=== PATIENT | female | born 1975 | race Caucasian/White ===

== ENCOUNTER → 2016-09-22 | Outpatient (CLI) | payer OTHER ==
--- NOTE | 2016-09-22 12:42 | US ---
EXAMINATION TYPE: US pelvic complete DATE OF EXAM: 09/22/2016 12:07 PM COMPARISON: NONE CLINICAL HISTORY: pelvic pain. Pt states known fibroid uterus with pelvic pain and pressure TECHNIQUE: Transvaginal (TV) and Transabdominal (TA) Date of LMP: dub, unknown EXAM MEASUREMENTS: Uterus: 9.6 x 5.4 x 6.4 cm Endometrial Stripe: 0.7 cm Right Ovary: 3.5 x 1.9 x 2.1 cm Left Ovary: 3.1 x 1.8 x 2.7 cm Exam done transvaginally to better visualize the uterus and ovaries. 1. Uterus: Anteverted bulky with 3 fibroids, posterior uterine body 4.2 x 4.1 x 4.4cm, rt lateral 2.7 x 1.4 x 2.1cm and rt fundal 1.2 x 1.6 x 1.2cm 2. Endometrium: wnl 3. Right Ovary: wnl 4. Left Ovary: wnl 5. Bilateral Adnexa: wnl 6. Posterior cul-de-sac: minimal amount of free fluid IMPRESSION: 1. Uterus appears bulky with multiple hypoechoic nodules the largest measuring 4.4 cm suggestive of f ibroids.
--- NOTE | 2016-09-22 21:17 | WWHP ---
DATE OF SERVICE: 09/22/2016 CHIEF COMPLAINT: The patient is here for her routine gynecologic exam. HPI: This is a 40-year-old G0 with an LMP of 08/30/2016. She is currently not sexually active. She states it is about 2-1/2 years since her last pelvic exam. [place] She states her periods have gotten more irregular and are now every 3 to 5 weeks. She has noticed this type of change for about 2 years. They have also got heavier and more painful. They are typically lasting 6 days with heavier flow throughout. She previously had to change her protection about every 3 to 4 hours but now changes it every 1 to 2 hours. More crampy and more painful. She states the pain changes during the last 1 to 2 days of her period where it feels like a deeper type of discomfort. She was told she has uterine fibroids about 2-1/2 years ago and this was determined by ultrasound. She is also complaining of lots of pelvic pressure and abdominal bloating. She also experienced urinary urgency. She had a urinalysis done at an urgent care clinic 3 weeks ago, which was apparently negative. PAST MEDICAL HISTORY: Hidradenitis suppurativa in the groin and axillary areas. 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 She currently does not have a primary care physician. MEDICATIONS: 1. Doxycycline 100 mg b.i.d. 2. Clobetasol gel p.r.n. ALLERGIES TO SULFA. PAST SURGICAL HISTORY: Sinus surgery at age 12, tonsillectomy with adenoidectomy as a child. She has had bilateral breast biopsies. Most recent was in approximately 2013 and this revealed a right fibroadenoma according to the patient. 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 She has no history of STDs. She was told she had uterine fibroids. SOCIAL HISTORY: She denies tobacco and drug use and has about one glass of wine daily. She has been since approximately 2005. She is not seeing anybody at this time. It has been more than a year, since she has been sexually active. 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 FAMILY HISTORY: Aunt had ovarian cancer. Mother had diverticulitis. Grandmother had Parkinson disease. REVIEW OF SYSTEMS: She believes she has gained about 20 pounds over the last 6 months. This was after losing about 30 pounds last summer with diet and exercise. She denies respiratory, cardiac, or GI problems. PHYSICAL EXAM: Blood pressure 110/72. Height 5 feet 3 inches. Weight 226 pounds. Temperature 98.0, pulse 99. This a well-developed, heavyset white female who is alert and oriented x3 in no acute distress. HEENT is within normal limits. NECK: Supple without mass or thyromegaly. CHEST AND LUNGS: Clear to auscultation. HEART: Regular rate and rhythm. Breast reveals a right breast mass at the 7 to 8:00 position measuring approximately 2.5 x 2.5 cm. It is firm and smooth and slightly mobile. This is nontender. She states this is where she had a breast biopsy diagnosing fibroadenoma 2-1/2 years ago. There are no other palpable breast masses. Axillary exam is negative for adenopathy. BACK: Negative for CVA tenderness. ABDOMEN: Mildly obese, soft, nontender, without palpable masses. PELVIC EXAM: External genitalia there is an area consistent with hidradenitis in the left mons pubis area as well as one in the buttock region. The one in the buttock region is slightly inflamed and has a slightly wet appearance. Rest of the external genitalia is unremarkable. Cervix and vagina is normal. No unusual discharge. No evidence of prolapse. There is no cervical motion tenderness. The uterus is approximately 6 to 8 week size and is midposition and nontender. There are no palpable adnexal masses or tenderness. Rectovaginal exam negative for mass or tenderness. EXTREMITIES: Nontender. IMPRESSION: 1. A 40-year-old female with menometrorrhagia. 2. Dysmenorrhea. 3. Abdominal bloating. 4. Urinary urgency. 5. History of uterine fibroids. 6. Right breast mass, which was apparently previously biopsied consistent with fibroadenoma. PLAN: 1. Pap smear was performed. 2. Self-breast examination was discussed. 3. Diagnostic mammogram will be ordered. We will see if this can be done today. 4. Pelvic ultrasound will be scheduled. 5. UA and C&S have been obtained. 6. Consider surgical referral for removal of the breast mass. 7. Trial of meclofenamate sodium 100 mg t.i.d. p.r.n. for heavy menstrual flow up to 6 days per cycle. 8. She will also return in one year and p.r.n. Total time spent with the patient 50 minutes.
--- NOTE | 2016-10-01 12:01 | MM ---
Reason for exam: clinical finding. History: Patient is nulliparous. Benign excisional biopsy of the right breast, 2013. Indicated problem(s): palpable abnormality in the right breast. Physical Findings: Nurse Summary: 2.5 x 2.5cm nodule in the right breast at 7-8 o'clock (Dr. Cooper). MG 3D Diag Mammo W/Cad MANDO Bilateral CC and MLO view(s) were taken. No prior studies available for comparison. Finding: There is a 25 mm high density, circumscribed round mass located 6 cm from the nipple in the upper outer quadrant, middle position. There is a 27mm round, circumscribed density in the right breast upper outer quadrant, 8cm from the nipple, solid on ultrasound. ASSESSMENT: Incomplete: need additional imaging evaluation, BI-RAD 0 RECOMMENDATION: Ultrasound of the left breast.
--- NOTE | 2016-10-14 13:05 | USB ---
Reason for exam: clinical finding. History: Patient is nulliparous. Benign excisional biopsy of the right breast, 2013. Indicated problem(s): palpable abnormality in the right breast. US Breast RT Right breast ultrasound includes all four quadrants, the retroareolar region and axilla. Finding demonstrates a 8 x 5 x 8mm oval, mixed lesion at 1 o'clock, a 36 x 26 x 27mm solid, hypoechoic lesion at 8 o'clock for which a biopsy of the largest lesion is recommended and a 10 x 7 x 11mm solid, hypoechoic lesion at 10 o'clock. These results were verbally communicated with the patient and result sheet given to the patient on 10/14/16. ASSESSMENT: Suspicious, BI-RAD 4 RECOMMENDATION: Ultrasound core biopsy of both breasts. Called Dr. Cooper with mammographic findings and has scheduled an appointment for the patient for 11/30/16 at 10:[address] Howard. Biopsy scheduled for 11/08/16 at 12:20. PRELIMINARY REPORT CALLED AND FAXED TO DR. HOWARD ON 10/14/16 AT 300/TP.
== END | disposition home or self-care (01) ==
LOC: WWCWWP 09:56
PROVIDERS: ATTEND Obstetrics & Gynecology
DX: N63 Unspecified lump in breast (principal); R10.2 Pelvic and perineal pain; N94.6 Dysmenorrhea, unspecified; N92.1 Excessive and frequent menstruation with irregular cycle; R14.0 Abdominal distension (gaseous); R39.15 Urgency of urination; N85.2 Hypertrophy of uterus
CPT/HCPCS: 76830; 76641; G0204; G0279

== ENCOUNTER → 2016-10-14 | Outpatient (CLI) | payer OTHER ==
--- NOTE | 2016-10-14 13:08 | USB ---
Reason for exam: additional evaluation requested from abnormal screening. History: Patient is nulliparous. Benign excisional biopsy of the right breast, 2013. US Breast Workup Limited LT Left breast ultrasound demonstrates several oval, solid, hypoechoic lesion measuring 28 x 17 x 28mm at 2 o'clock, 11 x 7 x 10mm at 3 o'clock, 9 x 4 x 10mm at 12 o'clock and 10 x 6 x 8mm at 12 o'clock. Biopsy largest lesion. These results were verbally communicated with the patient and result sheet given to the patient on 10/14/16. ASSESSMENT: Suspicious, BI-RAD 4 RECOMMENDATION: Ultrasound core biopsy of the left breast. Called Dr. Cooper with mammographic findings and has scheduled an appointment for the patient for 11/30/16 at 10:[address] Howard. Biopsy scheduled for 11/08/16 at 12:20. PRELIMINARY REPORT CALLED AND FAXED TO DR. HOWARD ON 10/14/16 AT 300/TP.
== END | disposition home or self-care (01) ==
LOC: RADUSWWP 10:16
PROVIDERS: ATTEND Obstetrics & Gynecology
DX: R92.8 Other abnormal and inconclusive findings on diagnostic imaging of breast (principal)

== ENCOUNTER → 2016-11-08 | Day surgery (SDC) | payer OTHER ==
[2016-11-08 12:11] VITALS: RESP 16; BMI 39.8
--- NOTE | 2016-11-08 14:11 | USB ---
EXAMINATION TYPE: US biopsy breast VAD LT DATE OF EXAM: 11/08/2016 CLINICAL HISTORY: R92.8 Abn mammogram. TECHNIQUE: Ultrasound guided core biopsy of left breast. COMPARISON: NONE FINDINGS: The procedure of ultrasound guided core biopsy was explained to the patient. Benefits, alternatives, and risks were discussed. An informed consent was then obtained. The patient was placed in supine positioning for imaging and for the procedure. The overlying skin was prepped and draped in usual sterile fashion. Lidocaine buffered with bicarbonate was used as anesthetic into the skin and subcutaneous tissue up to area of concern in the left breast. A astrid was made with surgical scalpel. Under ultrasound guidance, a 12-gauge vacuum assisted biopsy gun device was used to obtain 5 core samples. Following this, a biopsy clip was left in lesion. Postprocedural mammogram demonstrates appropriate deployment of clip marker. The patient tolerated the procedure well without any immediate complication. The patient was kept in the radiology department for short stay after the procedure and then discharged home in stable condition. IMPRESSION: Successful, uncomplicated ultrasound guided core biopsy of area of concern in the left breast, full pathology results to follow. Pathology Results: Benign A. BREAST, RIGHT, CORE BIOPSY: FIBROADENOMA. B. BREAST, LEFT, CORE BIOPSY: FIBROADENOMA. FIBROCYSTIC CHANGES INCLUDING CYST AND FIBROSIS. Recommendation Follow up ultrasound of both breasts in 6 months. CAROLD
--- NOTE | 2016-11-08 14:14 | USB ---
EXAMINATION TYPE: US biopsy breast VAD RT, MG diagnostic mammo BI wo CAD DATE OF EXAM: 11/08/2016 CLINICAL HISTORY: R92.8 Abn mammogram. TECHNIQUE: Ultrasound guided core biopsy of right breast. COMPARISON: NONE FINDINGS: The procedure of ultrasound guided core biopsy was explained to the patient. Benefits, alternatives, and risks were discussed. An informed consent was then obtained. The patient was placed in supine positioning for imaging and for the procedure. The overlying skin was prepped and draped in usual sterile fashion. Lidocaine buffered with bicarbonate was used as anesthetic into the skin and subcutaneous tissue up to area of concern in the right breast. A astrid was made with surgical scalpel. Under ultrasound guidance, a 12-gauge vacuum assisted biopsy gun device was used to obtain 5 core samples. Following this, a biopsy clip was left in lesion. Postprocedural mammogram demonstrates appropriate deployment of clip marker. The patient tolerated the procedure well without any immediate complication. The patient was kept in the radiology department for short stay after the procedure and then discharged home in stable condition. IMPRESSION: Successful, uncomplicated ultrasound guided core biopsy of area of concern in the right breast, full pathology results to follow. Pathology Results: Benign A. BREAST, RIGHT, CORE BIOPSY: FIBROADENOMA. B. BREAST, LEFT, CORE BIOPSY: FIBROADENOMA. FIBROCYSTIC CHANGES INCLUDING CYST AND FIBROSIS. Recommendation Follow up ultrasound of both breasts in 6 months. ANA
[2016-11-08 14:15] VITALS: BP 139/78; PULSE 90; TEMP 97.9
== END ==
LOC: RADUSWWP 11:45
PROVIDERS: ATTEND Surgery
DX: D24.1 Benign neoplasm of right breast (principal); D24.2 Benign neoplasm of left breast; N64.89 Other specified disorders of breast; R92.8 Other abnormal and inconclusive findings on diagnostic imaging of breast
CPT/HCPCS: 88305; 19083; 19084; G0204; A4648; J2001

== ENCOUNTER → 2016-12-22 | Outpatient (CLI) | payer OTHER ==
--- NOTE | 2016-12-22 11:12 | P.PN ---
Progress Note - Text Chief complaint: painful, heavy periods not improved with medication. HPI: This is a 41-year-old G0 with an LMP of 08/20/2016. The patient was seen on 09/22/2016. At that time she was complaining of heavier and more painful periods. Periods have been about every 3 to 5 weeks. The change in her periods have been over the last 2 1/2 years she states her peers are now affecting her work. She has to travel quite a bit for her work, but has been not able to work on the very painful and heavy days of her period. She tried taking meclofenafate sodium for 2 menstrual periods with no improvement whatsoever. She's also been having flareups of her hidradenitis supperativa just before each period. She also notices more ankle swelling during each period. She is interested in more definitive treatment for her menstrual leave related problems. She states she has no interest in childbearing and she is interested in having a hysterectomy for her problems. Physical exam: blood pressure 127/76, height 5'3", weight 231 pounds, tempter 98.6, pulse 89. This is a well-developed obese white female who is alert and oriented times 3 in no acute distress. She does get slightly tearful when she is describing her problems. Additional tests: pelvic ultrasound was performed on 09/22/2016 which showed multi-fibroid uterus with the largest fibroid measure progress by 4.4 cm. The ovaries were within normal limits. Mammogram done in 2016 was suspicious on both sides which led to a bilateral core biopsies on 11/08/2016 which revealed fibrocystic changes in fibroadenoma Impression: 1. 41-year-old female with a symptomatic multi-fibroid uterus with hypermenorrhia and severe dysmenorrhea. 2. No significant improvement with meclofenamate sodium treatment. Plan: 1. We have had a long discussion regarding her symptoms and findings by ultrasound. We have discussed various options including medical treatment with oral contraceptives, endometrial ablation and more definitive surgery such as hysterectomy as well as pros and cons of each option. We've also discussed myomectomy without hysterectomy. I do not feel endometrial ablation and myomectomy are ideal for her situation. We've also discussed how hysterectomy would not allow her to bear children. She understands this. 2. We have had a long discussion regarding various types of hysterectomies and approaches. She is interested in less invasive approaches so she can get back to normal activities and to her regular work schedule sooner. 3. We have discussed options that can be considered at the time of hysterectomy including oophorectomy. We have discussed pros and cons of bilateral oophorectomy at the time of hysterectomy. She understands that removing the ovaries would lead to instant menopause and there can be many symptoms associated with menopause. She understands that leaving ovaries in would possibly cause her to continue to have cyclic symptoms such as cyclic ankle swelling and cyclic worsening of Hidradenitis Suppurativa, as she has had in the past. 4. She will be referred to one of the local gynecologists for possible laparoscopic hysterectomy. 5. She was advised to discontinue meclofenamate sodium since it was not helpful. Total time spent with the patient: 35 minutes
== END | disposition home or self-care (01) ==
LOC: WWCWWP 09:49
PROVIDERS: ATTEND Obstetrics & Gynecology
DX: Z01.419 Encounter for gynecological examination (general) (routine) without abnormal findings (principal)

== ENCOUNTER 2017-06-03 18:37 | Emergency (ER) | payer MEDICAID, OTHER ==
[2017-06-03] MEDS ORDERED: SODIUM CHLORIDE 0.9% 1,000 ML IV STA (19:31)
[2017-06-03 19:56] LABS: Basophils # (A) 0.1 k/uL (0-0.2); Basophils % (A) 1 %; Eosinophils # (A) 0.3 k/uL (0-0.7); Eosinophils % (A) 2 %; HCT 41.2 % (34.0-46.0); HGB 13.3 gm/dL (11.4-16.0); Lymphocytes # (A) 3.8 k/uL (1.0-4.8); Lymphocytes % (A) 27 %; MCH 27.6 pg (25.0-35.0); MCHC 32.2 g/dL (31.0-37.0); MCV 85.8 fL (80.0-100.0); Mean Platelet Volume 7.5; Monocytes # (A) 0.7 k/uL (0-1.0); Monocytes % (A) 5 %; Neutrophils # (A) 8.8 k/uL (1.3-7.7); Neutrophils % (A) 63 %; Platelet Count 309 k/uL (150-450); RDW 14.4 % (11.5-15.5)
[2017-06-03 19:58] LABS: Appearance,Urine Clear (Clear); Bacteria,Urine Few /hpf; Bilirubin,Urine Negative (Negative); Blood,Urine Negative (Negative); Color,Urine Light Yellow; Glucose,Urine (UA) Negative (Negative); Ketones,Urine Negative (Negative); Leukocyte Esterase,Urine Small (Negative); Nitrite,Urine Negative (Negative); Protein,Urine Negative (Negative); RBC,Urine 6 /hpf (0-5); Specific Gravity,Urine 1.013 (1.001-1.035); Squamous Epithelial Cell,Urine 2 /hpf (0-4); Urobilinogen,Urine <2.0 mg/dL (<2.0); WBC,Urine 4 /hpf (0-5)
[2017-06-03 20:08] LABS: ALT 32 U/L (9-52); AST 16 U/L (14-36); Albumin 4.7 g/dL (3.5-5.0); Alkaline Phosphatase 58 U/L (38-126); Amylase 53 U/L (30-110); Anion Gap 15 mmol/L; Blood Urea Nitrogen 12 mg/dL (7-17); Calcium 9.9 mg/dL (8.4-10.2); Carbon Dioxide 24 mmol/L (22-30); Chloride 104 mmol/L (98-107); Glucose 88 mg/dL (74-99); Lipase 60 U/L (23-300); Potassium 4.1 mmol/L (3.5-5.1); Sodium 143 mmol/L (137-145); Total Bilirubin 0.2 mg/dL (0.2-1.3); Total Protein 8.1 g/dL (6.3-8.2)
[2017-06-03 20:09] LABS: Partial Thromboplastin Time 25.1 sec (22.0-30.0); Prothrombin Time 10.1 sec (9.0-12.0)
--- NOTE | 2017-06-03 20:47 | US ---
EXAMINATION TYPE: US gallbladder DATE OF EXAM: 06/03/2017 COMPARISON: NONE CLINICAL HISTORY: Pain. pressure sensation under right ribcage, no nausea, no pain, former alcoholic EXAM MEASUREMENTS: Liver Length: 18.8 cm Gallbladder Wall: 0.2 cm CBD: 0.4 cm Right Kidney: 10.3 x 4.3 x 4.6 cm Pancreas: wnl Liver: upper limits of normal for size Gallbladder: internal echoes may represent sludge with no obvious stones seen, slightly contracted a ppearance for being 8 hours NPO Evidence for sonographic Pabon's sign: no CBD: wnl Right Kidney: wnl IMPRESSION: There is some echogenic bile. No gallstones seen. No dilated ducts.
--- NOTE | 2017-06-03 21:09 | ED ---
Abdominal Pain HPI - General Chief Complaint: Abdominal Pain Stated Complaint: pressure, right side Time Seen by Provider: 06/03/17 19:08 Source: patient, RN notes reviewed, old records reviewed Mode of arrival: ambulatory Limitations: no limitations - History of Present Illness Initial Comments: This patient is a 41-year-old female presents emergency Department chief complaint of one week of increased pain over the right upper quadrant. Patient reports that she feels like she has a pressure and distention over this area. is concerned could be related to her gallbladder. She reports she's had no nausea or vomiting. She denies any significant pain when she is resting but she does have some tenderness to palpation over her right ribs. Patient states that she has had normal bowel movements. She does have a history of severe alcoholism. She reports that she's been sober for the past 4 months. Patient states that she is concerned about her liver enzymes as well. She is supposed to go on a trip tomorrow evening. She initially went to [facility] here for further evaluation with lab work and further testing.Patient denies any recent fever, chills, shortness of breath, nausea vomiting, numbness or tingling, dysuria or hematuria, constipation or diarrhea, headaches or visual changes, or any other current symptoms - Related Data Home Medications Medication Instructions Recorded Confirmed Clindamycin HCl 300 mg PO BID 06/03/17 06/03/17 Rifampin [Rifadin] 300 mg PO BID 06/03/17 06/03/17 Allergies Allergy/AdvReac Type Severity Reaction Status Date / Time Sulfa (Sulfonamide Allergy Anaphylaxis Verified 06/03/17 19:41 Antibiotics) Review of Systems ROS Statement: Those systems with pertinent positive or pertinent negative responses have been documented in the HPI. ROS Other: All systems not noted in ROS Statement are negative. Past Medical History Past Medical History: Mitral Valve Prolapse (MVP) Additional Past Medical History / Comment(s): HYDROTINITIS SUPERATIVA History of Any Multi-Drug Resistant Organisms: None Reported Past Surgical History: Adenoidectomy, Tonsillectomy Additional Past Surgical History / Comment(s): SINUS SX SECONDARY INFECTION @ 12 Y/O. RIGHT AXILLA EXCISIONAL (BENIGN)-2005. LEFT BREAST EXCISIONAL (BENIGN)- 2005. Past Anesthesia/Blood Transfusion Reactions: Postoperative Nausea & Vomiting ( PONV) Past Psychological History: No Psychological Hx Reported Smoking Status: Never smoker Past Alcohol Use History: None Reported Past Drug Use History: None Reported General Exam - General Exam Comments Initial Comments: This is a 41-year-old female. No acute distress. Limitations: no limitations General appearance: alert, in no apparent distress Head exam: Present: atraumatic, normocephalic, normal inspection Eye exam: Present: normal appearance, PERRL, EOMI. Absent: scleral icterus, conjunctival injection, periorbital swelling ENT exam: Present: normal exam, mucous membranes moist Neck exam: Present: normal inspection. Absent: tenderness, meningismus, lymphadenopathy Respiratory exam: Present: normal lung sounds bilaterally. Absent: respiratory distress, wheezes, rales, rhonchi, stridor Cardiovascular Exam: Present: regular rate, normal rhythm, normal heart sounds. Absent: systolic murmur, diastolic murmur, rubs, gallop, clicks GI/Abdominal exam: Present: soft, normal bowel sounds. Absent: distended, tenderness, guarding, rebound, rigid Extremities exam: Present: normal inspection, full ROM, normal capillary refill. Absent: tenderness, pedal edema, joint swelling, calf tenderness Back exam: Present: normal inspection Neurological exam: Present: alert, oriented X3, CN II-XII intact Psychiatric exam: Present: normal affect, normal mood Skin exam: Present: warm, dry, intact, normal color. Absent: rash Course Vital Signs 06/03/17 19:01 Pulse Rate 89 Respiratory 20 Rate Blood Pressure 145/90 O2 Sat by Pulse 100 Oximetry Medical Decision Making - Medical Decision Making This patient is a 41-year-old female presents emergency department today she complaint of right upper quadrant pain for the past 4 days. She's had no other symptoms according fever or chills or nausea or vomiting. She has a history of alcoholism. Patient has a mildly elevated white blood cell count at this time. Liver enzymes are all within normal limits. Kidney function was all within normal limits. Amylase and lipase are unremarkable. Patient did not want any pain medication and IV fluids. She states that she is not in any significant pain when she palpates over the ribs. Gallbladder ULTRASOUND was obtained. Evidence of gallbladder sludge but no evidence of acute cholecystitis. At this time I advised the patient that she needs follow-up with a surgeon possible HIDA scan of the future. Discussed return to emergency department if any alarming signs or symptoms occur. Patient agrees to treatment plan will comply. Return parameters were discussed. - Lab Data Result diagrams: 06/03/17 19:45 06/03/17 19:45 Lab Results 06/03/17 06/03/17 06/03/17 Range/Units 19:45 19:45 19:45 WBC 14.0 H (3.8-10.6) k/uL RBC 4.80 (3.80-5.40) m/uL Hgb 13.3 (11.4-16.0) gm/dL Hct 41.2 (34.0-46.0) % MCV 85.8 (80.0-100.0) fL MCH 27.6 (25.0-35.0) pg MCHC 32.2 (31.0-37.0) g/dL RDW 14.4 (11.5-15.5) % Plt Count 309 (150-450) k/uL Neutrophils % 63 % Lymphocytes % 27 % Monocytes % 5 % Eosinophils % 2 % Basophils % 1 % Neutrophils # 8.8 H (1.3-7.7) k/uL Lymphocytes # 3.8 (1.0-4.8) k/uL Monocytes # 0.7 (0-1.0) k/uL Eosinophils # 0.3 (0-0.7) k/uL Basophils # 0.1 (0-0.2) k/uL PT 10.1 (9.0-12.0) sec INR 1.0 (<1.2) APTT 25.1 (22.0-30.0) sec Sodium 143 (137-145) mmol/L Potassium 4.1 (3.5-5.1) mmol/L Chloride 104 (98-107) mmol/L Carbon Dioxide 24 (22-30) mmol/L Anion Gap 15 mmol/L BUN 12 (7-17) mg/dL Creatinine 0.70 (0.52-1.04) mg/dL Est GFR (MDRD) Af Amer >60 (>60 ml/min/1.73 sqM) Est GFR (MDRD) Non-Af >60 (>60 ml/min/1.73 sqM) Glucose 88 (74-99) mg/dL Calcium 9.9 (8.4-10.2) mg/dL Total Bilirubin 0.2 (0.2-1.3) mg/dL AST 16 (14-36) U/L ALT 32 (9-52) U/L Alkaline Phosphatase 58 (38-126) U/L Total Protein 8.1 (6.3-8.2) g/dL Albumin 4.7 (3.5-5.0) g/dL Amylase 53 (30-110) U/L Lipase 60 (23-300) U/L Urine Color Urine Appearance (Clear) Urine pH (5.0-8.0) Ur Specific [place] (1.001-1.035) Urine Protein (Negative) Urine Glucose (UA) (Negative) Urine Ketones (Negative) Urine Blood (Negative) Urine Nitrite (Negative) Urine Bilirubin (Negative) Urine Urobilinogen (<2.0) mg/dL Ur Leukocyte Esterase (Negative) Urine RBC (0-5) /hpf Urine WBC (0-5) /hpf Ur Squamous Epith Cells (0-4) /hpf Urine Bacteria (None) /hpf 06/03/17 Range/Units 19:45 WBC (3.8-10.6) k/uL RBC (3.80-5.40) m/uL Hgb (11.4-16.0) gm/dL Hct (34.0-46.0) % MCV (80.0-100.0) fL MCH (25.0-35.0) pg MCHC (31.0-37.0) g/dL RDW (11.5-15.5) % Plt Count (150-450) k/uL Neutrophils % % Lymphocytes % % Monocytes % % Eosinophils % % Basophils % % Neutrophils # (1.3-7.7) k/uL Lymphocytes # (1.0-4.8) k/uL Monocytes # (0-1.0) k/uL Eosinophils # (0-0.7) k/uL Basophils # (0-0.2) k/uL PT (9.0-12.0) sec INR (<1.2) APTT (22.0-30.0) sec Sodium (137-145) mmol/L Potassium (3.5-5.1) mmol/L Chloride (98-107) mmol/L Carbon Dioxide (22-30) mmol/L Anion Gap mmol/L BUN (7-17) mg/dL Creatinine (0.52-1.04) mg/dL Est GFR (MDRD) Af Amer (>60 ml/min/1.73 sqM) Est GFR (MDRD) Non-Af (>60 ml/min/1.73 sqM) Glucose (74-99) mg/dL Calcium (8.4-10.2) mg/dL Total Bilirubin (0.2-1.3) mg/dL AST (14-36) U/L ALT (9-52) U/L Alkaline Phosphatase (38-126) U/L Total Protein (6.3-8.2) g/dL Albumin (3.5-5.0) g/dL Amylase (30-110) U/L Lipase (23-300) U/L Urine Color Light Yellow Urine Appearance Clear (Clear) Urine pH 6.0 (5.0-8.0) Ur Specific [place] 1.013 (1.001-1.035) Urine Protein Negative (Negative) Urine Glucose (UA) Negative (Negative) Urine Ketones Negative (Negative) Urine Blood Negative (Negative) Urine Nitrite Negative (Negative) Urine Bilirubin Negative (Negative) Urine Urobilinogen <2.0 (<2.0) mg/dL Ur Leukocyte Esterase Small H (Negative) Urine RBC 6 H (0-5) /hpf Urine WBC 4 (0-5) /hpf Ur Squamous Epith Cells 2 (0-4) /hpf Urine Bacteria Few H (None) /hpf - Radiology Data Radiology results: report reviewed Ultrasound does show some echogenic bile. No gallstones seen. No dilated ducts. Disposition Clinical Impression: RUQ pain Disposition: HOME SELF-CARE Condition: Good Instructions: Biliary Colic (ED) Additional Instructions: Patient advised to follow-up with the surgical appliance fitter. Return to emergency department if any alarming signs or symptoms occur including vomiting, nausea, fever or other worsening pain. Patient should monitor her diet. Avoid any fatty or greasy foods. Return to emergency department if any alarming signs or symptoms occur. Referrals: None,Stated [Primary Care Provider] - 1-2 days Hailey Dave MD [STAFF PHYSICIAN] - 1-2 days Sherman Feldman DO [Doctor of Osteopathic Medicine] - 1-2 days Time of Disposition: 21:06
--- NOTE | 2017-06-03 21:17 | ED ---
Medical Decision Making - Medical Decision Making This case with Dr. Mireles. He recommended that we do do a computed tomography scan for the patient. I did complete a CT without contrast due to the red blood cells's with in her urine. She does have some stones within her left kidney. Gallbladder was reviewed on the CAT scan shows no significant acute process. She does have a right sided breast adenoma. Patient is aware of this. It is slightly increased from previous. She has no redness or significant tenderness to the breast exam. Pain is mainly in the right upper quadrant. She did refuse IV pain medicine at this time. I discussed the patient will be discharged with biliary colic. Discussed the importance of monitoring her diet. Patient will be discharged short course of pain medicine. Discussed following up. - Lab Data Result diagrams: 06/03/17 19:45 06/03/17 19:45 Lab Results 06/03/17 06/03/17 06/03/17 Range/Units 19:45 19:45 19:45 WBC 14.0 H (3.8-10.6) k/uL RBC 4.80 (3.80-5.40) m/uL Hgb 13.3 (11.4-16.0) gm/dL Hct 41.2 (34.0-46.0) % MCV 85.8 (80.0-100.0) fL MCH 27.6 (25.0-35.0) pg MCHC 32.2 (31.0-37.0) g/dL RDW 14.4 (11.5-15.5) % Plt Count 309 (150-450) k/uL Neutrophils % 63 % Lymphocytes % 27 % Monocytes % 5 % Eosinophils % 2 % Basophils % 1 % Neutrophils # 8.8 H (1.3-7.7) k/uL Lymphocytes # 3.8 (1.0-4.8) k/uL Monocytes # 0.7 (0-1.0) k/uL Eosinophils # 0.3 (0-0.7) k/uL Basophils # 0.1 (0-0.2) k/uL PT 10.1 (9.0-12.0) sec INR 1.0 (<1.2) APTT 25.1 (22.0-30.0) sec Sodium 143 (137-145) mmol/L Potassium 4.1 (3.5-5.1) mmol/L Chloride 104 (98-107) mmol/L Carbon Dioxide 24 (22-30) mmol/L Anion Gap 15 mmol/L BUN 12 (7-17) mg/dL Creatinine 0.70 (0.52-1.04) mg/dL Est GFR (MDRD) Af Amer >60 (>60 ml/min/1.73 sqM) Est GFR (MDRD) Non-Af >60 (>60 ml/min/1.73 sqM) Glucose 88 (74-99) mg/dL Calcium 9.9 (8.4-10.2) mg/dL Total Bilirubin 0.2 (0.2-1.3) mg/dL AST 16 (14-36) U/L ALT 32 (9-52) U/L Alkaline Phosphatase 58 (38-126) U/L Total Protein 8.1 (6.3-8.2) g/dL Albumin 4.7 (3.5-5.0) g/dL Amylase 53 (30-110) U/L Lipase 60 (23-300) U/L Urine Color Urine Appearance (Clear) Urine pH (5.0-8.0) Ur Specific [place] (1.001-1.035) Urine Protein (Negative) Urine Glucose (UA) (Negative) Urine Ketones (Negative) Urine Blood (Negative) Urine Nitrite (Negative) Urine Bilirubin (Negative) Urine Urobilinogen (<2.0) mg/dL Ur Leukocyte Esterase (Negative) Urine RBC (0-5) /hpf Urine WBC (0-5) /hpf Ur Squamous Epith Cells (0-4) /hpf Urine Bacteria (None) /hpf 06/03/17 Range/Units 19:45 WBC (3.8-10.6) k/uL RBC (3.80-5.40) m/uL Hgb (11.4-16.0) gm/dL Hct (34.0-46.0) % MCV (80.0-100.0) fL MCH (25.0-35.0) pg MCHC (31.0-37.0) g/dL RDW (11.5-15.5) % Plt Count (150-450) k/uL Neutrophils % % Lymphocytes % % Monocytes % % Eosinophils % % Basophils % % Neutrophils # (1.3-7.7) k/uL Lymphocytes # (1.0-4.8) k/uL Monocytes # (0-1.0) k/uL Eosinophils # (0-0.7) k/uL Basophils # (0-0.2) k/uL PT (9.0-12.0) sec INR (<1.2) APTT (22.0-30.0) sec Sodium (137-145) mmol/L Potassium (3.5-5.1) mmol/L Chloride (98-107) mmol/L Carbon Dioxide (22-30) mmol/L Anion Gap mmol/L BUN (7-17) mg/dL Creatinine (0.52-1.04) mg/dL Est GFR (MDRD) Af Amer (>60 ml/min/1.73 sqM) Est GFR (MDRD) Non-Af (>60 ml/min/1.73 sqM) Glucose (74-99) mg/dL Calcium (8.4-10.2) mg/dL Total Bilirubin (0.2-1.3) mg/dL AST (14-36) U/L ALT (9-52) U/L Alkaline Phosphatase (38-126) U/L Total Protein (6.3-8.2) g/dL Albumin (3.5-5.0) g/dL Amylase (30-110) U/L Lipase (23-300) U/L Urine Color Light Yellow Urine Appearance Clear (Clear) Urine pH 6.0 (5.0-8.0) Ur Specific [place] 1.013 (1.001-1.035) Urine Protein Negative (Negative) Urine Glucose (UA) Negative (Negative) Urine Ketones Negative (Negative) Urine Blood Negative (Negative) Urine Nitrite Negative (Negative) Urine Bilirubin Negative (Negative) Urine Urobilinogen <2.0 (<2.0) mg/dL Ur Leukocyte Esterase Small H (Negative) Urine RBC 6 H (0-5) /hpf Urine WBC 4 (0-5) /hpf Ur Squamous Epith Cells 2 (0-4) /hpf Urine Bacteria Few H (None) /hpf - Radiology Data Radiology results: report reviewed Nonobstructing left renal calculus. Normal appendix no sign of acute abdomen and pelvis. Large right breast mass follow-up as recommended. Isbe present in all mammogram and appears increased. Disposition Clinical Impression: RUQ pain Disposition: HOME SELF-CARE Condition: Good Instructions: Biliary Colic (ED) Additional Instructions: Patient advised to follow-up with the waste management specialist. Return to emergency department if any alarming signs or symptoms occur including vomiting, nausea, fever or other worsening pain. Patient should monitor her diet. Avoid any fatty or greasy foods. Return to emergency department if any alarming signs or symptoms occur. Prescriptions: HYDROcodone/APAP 5-325MG [[place] 5-325] 1 tab PO Q6HR PRN #10 tab PRN Reason: Pain Referrals: Sherman Feldman DO [Doctor of Osteopathic Medicine] - 1-2 days Hailey Dave MD [STAFF PHYSICIAN] - 1-2 days None,Stated [Primary Care Provider] - 1-2 days Dora Howard MD [STAFF PHYSICIAN] - 1-2 days Time of Disposition: 22:02
--- NOTE | 2017-06-03 21:42 | CT ---
EXAMINATION TYPE: CT abdomen pelvis wo con DATE OF EXAM: 06/03/2017 COMPARISON: NONE HISTORY: Right upper quadrant pain, elevated wbcs and microscopic hematuria. CT DLP: 1004.7 mGycm Automated exposure control for dose reduction was used. TECHNIQUE: Helical acquisition of images was performed from the lung bases through the pelvis. FINDINGS: Lung bases are clear. There is no pleural effusion. Liver spleen pancreas gallbladder appear normal. Bile ducts are not dilated. There is no adrenal mass. Kidneys have normal size and contour. There is no hydronephrosis. There is no retroperitoneal adenopathy. There is a 4 mm calculus in the interpolar left kidney. Appendix appears normal. Bladder distends smoothly. The uterus is anteverted. There is no evidence of a solid pelvic mass. Lumbar spine is intact. There is a 3 cm cyst on the right ovary. I see no intestinal wall thickening. There are no dilated loops. There is an irregular 3.7 cm soft tissue mass in the right breast. IMPRESSION: NONOBSTRUCTING LEFT RENAL CALCULUS. NORMAL APPENDIX. NO SIGN OF AN ACUTE ABDOMEN AND PELVIS. LARGE RIGHT BREAST MASS. FOLLOW-UP IS RECOMMENDED. THIS MASS APPEARS TO BE PRESENT ON THE OLD MAMMOGR AM OF 09/22/2016 AND APPEARS INCREASED.
[2017-06-03 22:07] VITALS: BP 130/70; PULSE 90; RESP 18; TEMP 98.3
== END 2017-06-03 22:18 | disposition home or self-care (01) ==
LOC: EC 18:37
DX: R10.11 Right upper quadrant pain (principal); Z88.2 Allergy status to sulfonamides; Z53.20 Procedure and treatment not carried out because of patient's decision for unspecified reasons
CPT/HCPCS: 36415; 74176; 76705; 80053; 81001; 82150; 83690; 85025; 85610; 85730; 99284

== ENCOUNTER → 2018-01-03 | Outpatient (CLI) | payer MEDICAID ==
[2018-01-03 17:08] LABS: Basophils % (A) 0 %; Eosinophils # (A) 0.2 k/uL (0-0.7); Eosinophils % (A) 1 %; HCT 40.9 % (34.0-46.0); HGB 13.1 gm/dL (11.4-16.0); Lymphocytes # (A) 3.2 k/uL (1.0-4.8); Lymphocytes % (A) 23 %; MCH 26.8 pg (25.0-35.0); MCV 83.6 fL (80.0-100.0); Mean Platelet Volume 7.2; Monocytes # (A) 0.8 k/uL (0-1.0); Monocytes % (A) 6 %; Neutrophils # (A) 9.3 k/uL (1.3-7.7); Neutrophils % (A) 67 %; Platelet Count 285 k/uL (150-450); RBC 4.89 m/uL (3.80-5.40); RDW 13.1 % (11.5-15.5); WBC 13.8 k/uL (3.8-10.6)
[2018-01-03 17:23] LABS: Anion Gap 10 mmol/L; Blood Urea Nitrogen 13 mg/dL (7-17); Calcium 9.9 mg/dL (8.4-10.2); Carbon Dioxide 26 mmol/L (22-30); Chloride 104 mmol/L (98-107); Glucose 82 mg/dL (74-99); Potassium 4.2 mmol/L (3.5-5.1); Sodium 140 mmol/L (137-145)
== END | disposition home or self-care (01) ==
LOC: LABPAT 16:44
PROVIDERS: ATTEND Obstetrics & Gynecology
DX: Z01.812 Encounter for preprocedural laboratory examination (principal)
CPT/HCPCS: 36415; 80048; 85025

== ENCOUNTER → 2018-01-03 | Outpatient (CLI) | payer MEDICAID ==
--- NOTE | 2018-01-04 07:26 | MR ---
MR chest without contrast HISTORY: Abnormal mammogram Multiplanar multisequence imaging obtained through the chest with attention towards the right axilla. Correlation to prior mammogram 11/08/2016. Patient refused intravenous contrast. The right breast shows mixed intermediate increased signal which could be indicative of underlying fi brocystic change. There is susceptibility artifact present at the level of the lower aspect of the ri ght breast which corresponds to mammographic finding of soft tissue mass with associated marker clips compatible with prior biopsy, this area measures approximately 3.6 cm. Circumferential low signal pr esent on T1 and T2 weighted sequences this level suggests a hemosiderin ring, prior biopsy. Right axi lla shows an enlarged node measuring approximately 14 mm in short axis, there is suggestion of a fatt y hilum present. Additional smaller nodes are present within the axilla. Along the anterior musculatu re over the proximal right humerus there is increased signal on T1 and T2-weighted sequences which is somewhat wedge-shaped, some increased signal also noted within the subcutaneous fat. IMPRESSION: Findings suggest fibrocystic changes within the right breast, previous biopsy site, corre late with pathology, consider mammogram, follow-up right breast ultrasound correlation. Correlate for any prior trauma to the proximal right upper extremity with possible local hemorrhage. Cannot exclud e pathologic adenopathy in the right axilla, there is suggestion of fatty central hilus however. Natalee ent refused intravenous contrast. Follow-up is recommended.
== END | disposition home or self-care (01) ==
LOC: RADMRIMAIN 17:13
PROVIDERS: ATTEND Physician Assistant
DX: R22.2 Localized swelling, mass and lump, trunk (principal)
CPT/HCPCS: 71550

== ENCOUNTER 2018-01-12 05:40 | Observation (INO) | payer MEDICAID ==
[2018-01-10 08:28] VITALS: BMI 33.1
--- NOTE | 2018-01-11 17:24 | P.HPOB ---
History of Present Illness H&P Date: 01/11/18 Chief Complaint: Menorrhagia 42 year old G0 presents for H with da tre due to fibroid uterus and menorrhagia. Review of Systems All systems: negative Constitutional: Denies chills, Denies fever Eyes: denies blurred vision, denies pain Ears, nose, mouth and throat: Denies headache, Denies sore throat Cardiovascular: Denies chest pain, Denies shortness of breath Respiratory: Denies cough Gastrointestinal: Denies abdominal pain, Denies diarrhea, Denies nausea, Denies vomiting Genitourinary: Denies dysuria, Denies hematuria Musculoskeletal: Denies myalgias Integumentary: Denies pruritus, Denies rash Neurological: Denies numbness, Denies weakness Psychiatric: Denies anxiety, Denies depression Endocrine: Denies fatigue, Denies weight change Past Medical History Past Medical History: Asthma, Mitral Valve Prolapse (MVP) Additional Past Medical History / Comment(s): Hidradenitis Suppurativa,. asthma as child, lasik surgery History of Any Multi-Drug Resistant Organisms: None Reported Past Surgical History: Adenoidectomy, Tonsillectomy Additional Past Surgical History / Comment(s): SINUS SX SECONDARY INFECTION @ 12 Y/O. RIGHT AXILLA EXCISIONAL (BENIGN)-2005. LEFT BREAST EXCISIONAL (BENIGN)- 2005. 2 breast biopsy with chip in place Past Anesthesia/Blood Transfusion Reactions: Postoperative Nausea & Vomiting ( PONV) Past Psychological History: No Psychological Hx Reported Smoking Status: Never smoker Past Alcohol Use History: None Reported Past Drug Use History: None Reported - Past Family History Mother Family Medical History: No Reported History Medications and Allergies Home Medications Medication Instructions Recorded Confirmed Type Rifampin [Rifadin] 300 mg PO BID 06/03/17 01/10/18 History Clindamycin HCl 300 mg PO Q12HR 01/10/18 01/10/18 History Allergies Allergy/AdvReac Type Severity Reaction Status Date / Time acetaminophen [From Lortab] Allergy Rash/Hives Verified 01/10/18 08:29 hydrocodone [From Lortab] Allergy Rash/Hives Verified 01/10/18 08:29 Sulfa (Sulfonamide Allergy Anaphylaxis Verified 01/10/18 08:28 Antibiotics) Exam Osteopathic Statement: *. No significant issues noted on an osteopathic structural exam other than those noted in the History and Physical/Consult. HEart: RRR Lungs: CTAB Abdomen: soft, nontender Extremeties: neg hubert's Assessment and Plan (1) Fibroid uterus Status: Acute Code(s): D25.9 - LEIOMYOMA OF UTERUS, UNSPECIFIED SNOMED Code( s): 18983598 (2) Menorrhagia Status: Acute Code(s): N92.0 - EXCESSIVE AND FREQUENT MENSTRUATION WITH REGULAR CYCLE SNOMED Code(s): 033943681 Plan: 1. TL with da tre, diagnostic cystoscopy
[~2018-01-12 05:40] MED LIST: ceFAZolin IN SWFI 2 GM/20 ML SYRINGE IVP ONE
[2018-01-12] MEDS ORDERED: HYDROmorphone 0.5 MG/0.5 ML SYRINGE IVP PRN ×2 (05:42→14:38)
[2018-01-12] MEDS ORDERED: ONDANSETRON 4 MG/2 ML VIAL IVP ONE (05:42)
[2018-01-12] MEDS ORDERED: DEXAMETHASONE SOD PHOSPHATE 10 MG/ML 1 ML VIAL IV ONE (05:42)
[2018-01-12] MEDS ORDERED: LIDOCAINE 1% 20 ML VIAL (10MG/ML) FOR IV START INTRADERMA ONE ×2 (06:30→06:35)
[2018-01-12] MEDS: LACTATED RINGERS 1,000 ML IV SCH ×2 (06:41→10:44)
[2018-01-12] MEDS ORDERED: ROCURONIUM BROMIDE 10 MG/ML 10 ML VIAL IV ONE (07:17)
[2018-01-12] MEDS ORDERED: NEOSTIGMINE 1 MG/ML 10 ML VIAL ONE (07:17)
[2018-01-12] MEDS ORDERED: LIDOCAINE 1% INJ 10MG/ML (20 ML MDV) ONE (07:17)
[2018-01-12] MEDS ORDERED: GLYCOPYRROLATE 0.2 MG/ML 2 ML VIAL ONE (07:17)
[2018-01-12] MEDS ORDERED: KETOROLAC 30 MG/ML 1 ML VIAL ONE (07:17)
[2018-01-12] MEDS ORDERED: fentaNYL (PF) 50 MCG/ML 2 ML AMP ONE (07:17)
[2018-01-12] MEDS ORDERED: SUCCINYLCHOLINE CHLORIDE 100 MG/5 ML SYR IV ONE (07:17)
[2018-01-12] MEDS ORDERED: PROPOFOL 10 MG/ML 20 ML VIAL IV ONE (07:17)
[2018-01-12] MEDS ORDERED: MIDAZOLAM 2 MG/2 ML VIAL ONE (07:17)
[2018-01-12] MEDS ORDERED: HYDROmorphone (PF) 1 MG/ML ONE (07:17)
[2018-01-12] MEDS ORDERED: ROPIVACAINE 5 MG/ML 30 ML VIAL MISCELLANE ONE (07:41)
[2018-01-12] MEDS ORDERED: Acetaminophen-Codeine 300-30mg TAB PO PRN ×2 (10:16)
[2018-01-12] MEDS ORDERED: ONDANSETRON 4 MG/2 ML VIAL IVP PRN (10:16)
[2018-01-12] MEDS: SIMETHICONE 80 MG CHEWABLE PO PRN ×2 (10:38→21:01)
[2018-01-12] MEDS: KETOROLAC 30 MG/ML 1 ML VIAL IVP PRN ×2 (13:29→23:13)
[2018-01-12] MEDS ORDERED: HYDROmorphone 1 MG/ML 1 ML SYRINGE IVP PRN (14:38)
[2018-01-12] MEDS: HYDROmorphone 1 MG/ML 1 ML SYRINGE IVP PRN ×3 (14:52→18:50)
[2018-01-12] MEDS: CLINDAMYCIN 150 MG CAP PO SCH (21:01)
[2018-01-12] MEDS: RIFAMPIN 300 MG CAP PO SCH (21:01)
[2018-01-12] MEDS: SENNOSIDES-DOCUSATE SODIUM 1 EACH TAB PO SCH (21:18)
[2018-01-13] MEDS: LACTATED RINGERS 1,000 ML IV SCH (02:49)
[2018-01-13] MEDS ORDERED: HYDROmorphone 2 MG TAB PO PRN (06:29)
[2018-01-13] MEDS ORDERED: HYDROmorphone 4 MG TABLET PO PRN (06:29)
[2018-01-13 06:48] LABS: Basophils # (A) 0.1 k/uL (0-0.2); Basophils % (A) 0 %; Eosinophils # (A) 0.1 k/uL (0-0.7); Eosinophils % (A) 1 %; HCT 36.5 % (34.0-46.0); HGB 11.5 gm/dL (11.4-16.0); Lymphocytes # (A) 2.3 k/uL (1.0-4.8); Lymphocytes % (A) 19 %; MCHC 31.6 g/dL (31.0-37.0); MCV 85.5 fL (80.0-100.0); Monocytes # (A) 0.6 k/uL (0-1.0); Monocytes % (A) 5 %; Neutrophils # (A) 8.9 k/uL (1.3-7.7); Neutrophils % (A) 73 %; Platelet Count 255 k/uL (150-450); RBC 4.27 m/uL (3.80-5.40); WBC 12.2 k/uL (3.8-10.6)
[2018-01-13] MEDS: KETOROLAC 30 MG/ML 1 ML VIAL IVP PRN (08:04)
--- NOTE | 2018-01-13 08:29 | P.OP ---
Date of Procedure: 01/13/18 Preoperative Diagnosis: 1. Fibroid uterus 2. MEnorrhagia Postoperative Diagnosis: same Procedure(s) Performed: Total laparoscopic hysterectomy with da Chap[place], diagnostic cystoscopy Anesthesia: NICOLLE Surgeon: Lynn Rodriguez Fish Butcher #1: Sam Villegas Estimated Blood Loss (ml): 10 IV fluids (ml): 550 Urine output (ml): 175 Pathology: other (Uterus and cervix) Condition: stable Disposition: PACU Operative Findings: Large fibroid uterus, normal tubes and ovaries Description of Procedure: Patient taken the operating room where general anesthesia was obtained without difficulty. She is prepped and draped in normal sterile fashion dorsal lithotomy position, legs placed in the Stevie stirrups. Weighted speculum placed in the vagina and the anterior lip the cervix was grasped with single- tooth tenaculum. The uterus sounded to 6 cm and the cervix diameter was 2.5 cm. The appropriate manipulator tip and ring were placed on the Daina manipulator. The Daina manipulator was then placed in the uterus. Kim catheter was also placed. Attention was then turned to the abdomen and gloves were changed. A 5 mm supraumbilical incision was made the scalpel and a 5 mm optical trocar was placed under direct visualization. 10 cm to the right of this and 2 cm down a 5 mm incision was made and 8 mm da Chap[place]ito port was placed under direct visualization. Same measurements on the opposite side of the patient's abdomen, the 5 mm incision was made and 8 mm da [place] port was placed under direct visualization. In the left upper quadrant a 10 mm incision was made and a 10 mm optical trocar was placed under direct visualization. The 5 mm optical trocar was then replaced with the 8 mm da [place] camera port. The robot was docked on patient's right side. The camera was introduced and then the monopolar curved scissor and Maryland bipolar placed under direct visualization. I broke scrub and went to the physician console. The left utero -ovarian ligament was cauterized with the Maryland bipolar and cut with monopolar curved scissors. The left round ligament was cauterized with the [place] bipolar and cut with monopolar curved scissors. The posterior leaf of the broad ligament was taken down using the monopolar curved scissors. Anterior leaf of the broad ligament was then taken down using the monopolar curved scissors. The uterine artery was cauterized with the Maryland bipolar and cut with monopolar curved scissors. The bladder flap was then started using the monopolar curved scissors. Attention was then turned to the right side of the patient's anatomy and the right utero-ovarian ligament was cauterized with the Maryland bipolar and cut with monopolar curved scissors. The right round ligament was cauterized with the [place] bipolar and cut with monopolar curved scissors. Posterior leaf of the broad ligament was taken down using the monopolar curved scissors and the anterior leaf was taken down using the monopolar curved scissors. The uterine artery was cauterized the Maryland bipolar cut with monopolar curved scissors. The bladder flap was then finished on this side. Anterior colpotomy was made using the monopolar curved scissors. The rest of the uterus was from the vaginal cuff by following the ring around with the monopolar curved scissors through the uterosacral ligaments back to the anterior portion. Once the uterus and cervix were amputated an Rajiv contained extraction bag was placed through the vagina and the uterus was placed in this bag. The bag was pulled down towards the vagina and the ring was pulled through and tightened. The cervix was pulled through the vagina and before I could start carving out sections of the uterus to morcellated out, it was able to be removed through the vagina easily. Hemostasis was assured. The instruments were changed for the Cardier forcep and the iris suture cut. The vaginal cuff was then closed using 2-O stratafix suture in a running fashion. Hemostasis was again assured and the pelvis was irrigated. All instruments were removed from the abdomen and the robot was undocked. I scrubbed back in to perform a cystoscopy. There were jets from both ureteral orifices. The abdominal incisions were closed with 4-0 Vicryl in a subcuticular fashion. Patient tolerated the procedure well, sponge and instrument counts correct 2 and she was taken to recovery room in stable condition condition
--- NOTE | 2018-01-13 08:31 | P.DS ---
Providers Date of admission: 01/12/18 20:55 Expected date of discharge: 01/13/18 Attending physician: Lynn Rodriguez Primary care physician: Reinaldo Sandoval - Discharge Diagnosis(es) (1) Fibroid uterus Current Visit: No Status: Resolved (2) Menorrhagia Current Visit: No Status: Resolved (3) History of robot-assisted laparoscopic hysterectomy Current Visit: Yes Status: Acute Hospital Course: Patient presented for total laparoscopic hysterectomy with da Chapinc[place]. She underwent this procedure without complication. Her postoperative course was uneventful. She'll be discharged home postoperative day #1 in stable condition to follow-up with me in 3 weeks. Her incisions are clean, dry, intact. She is ambulating voiding without difficulty. She is tolerating regular diet. Her pain is well-controlled with Toradol, as a matter of fact she has not had anything for pain this morning yet. We reviewed discharge instructions thoroughly and she is clear on these. Also her in my office in 3 weeks and she knows to call if any fevers or increased pain or bleeding. Plan - Discharge Summary Discharge Rx Participant: Yes New Discharge Prescriptions: New Acetaminophen-Codeine 300-30mg [Tylenol w/codeine #3] 2 each PO Q6HR PRN #24 tab PRN Reason: Severe Pain Ibuprofen [Motrin] 600 mg PO Q6HR PRN #30 tab PRN Reason: Mild Pain Or Fever >= 100.5 No Action Rifampin [Rifadin] 300 mg PO BID Clindamycin HCl 300 mg PO Q12HR Discharge Medication List Rifampin [Rifadin] 300 mg PO BID 06/03/17 [History] Clindamycin HCl 300 mg PO Q12HR 01/10/18 [History] Acetaminophen-Codeine 300-30mg [Tylenol w/codeine #3] 2 each PO Q6HR PRN #24 tab 01/13/18 [Rx] Ibuprofen [Motrin] 600 mg PO Q6HR PRN #30 tab 01/13/18 [Rx] Follow up Appointment(s)/Referral(s): Lynn Rodriguez DO [Doctor of Osteopathic Medicine] - 3 Weeks Discharge Disposition: HOME SELF-CARE
[2018-01-13 09:21] VITALS: BP 130/77; PULSE 85; RESP 16; TEMP 98.1
[2018-01-13] MEDS: CLINDAMYCIN 150 MG CAP PO SCH (09:41)
[2018-01-13] MEDS: SENNOSIDES-DOCUSATE SODIUM 1 EACH TAB PO SCH (09:42)
[2018-01-13] MEDS: RIFAMPIN 300 MG CAP PO SCH (09:42)
== END 2018-01-13 09:30 | disposition home or self-care (01) ==
LOC: OR 05:40 → 6PED 08:35 → OR 21:06 → 6PED 23:13
PROVIDERS: ADMIT Obstetrics & Gynecology; ATTEND Obstetrics & Gynecology
DX: D25.2 Subserosal leiomyoma of uterus (principal); N72 Inflammatory disease of cervix uteri; N84.1 Polyp of cervix uteri; L73.2 Hidradenitis suppurativa; Z79.899 Other long term (current) drug therapy; Z79.2 Long term (current) use of antibiotics; Z88.5 Allergy status to narcotic agent; Z88.2 Allergy status to sulfonamides
CPT/HCPCS: 58570; S2900; 81025; 85025; 86850; 86900; 86901; 88307

== ENCOUNTER 2018-04-19 09:40 | Day surgery (SDC) | payer MEDICAID ==
[2018-04-17 10:43] VITALS: BMI 33.6
[~2018-04-19 09:40] MED LIST changes: +DEXAMETHASONE SOD PHOSPHATE 10 MG/ML 1 ML VIAL IV ONE; +HEPARIN SODIUM,PORCINE 5,000 UNIT/ML 1 ML VIAL SQ ONE; +HYDROmorphone 0.5 MG/0.5 ML SYRINGE IVP PRN; +LACTATED RINGERS 1,000 ML IV SCH; +LIDOCAINE 1% 20 ML VIAL (10MG/ML) FOR IV START INTRADERMA PRN; +MIDAZOLAM 2 MG/2 ML VIAL IV PRN; +ONDANSETRON 4 MG/2 ML VIAL IVP ONE; +Pre Op ABX Message 1 EACH MISC MISCELLANE ONE; +SCOPOLAMINE 1.5MG/72HR PATCH TRANSDERM ONE; -ceFAZolin IN SWFI 2 GM/20 ML SYRINGE IVP ONE
--- NOTE | 2018-04-19 10:25 | P.GSHP ---
History of Present Illness H&P Date: 04/19/18 Chief Complaint: Bilateral breast masses Patient is here today for bilateral breast biopsies. Patient has previously biopsied fibroadenomas enlarging bilaterally. Mild pain at times. No additional new complaints. Past Medical History Past Medical History: Mitral Valve Prolapse (MVP) Additional Past Medical History / Comment(s): HIDRADENITIS SUPPURATIVA History of Any Multi-Drug Resistant Organisms: None Reported Past Surgical History: Adenoidectomy, Hysterectomy, Tonsillectomy Additional Past Surgical History / Comment(s): SINUS SX SECONDARY INFECTION @ 12 Y/O. RIGHT AXILLA EXCISIONAL (BENIGN)-2005. LEFT BREAST EXCISIONAL (BENIGN)- 2005. 2 breast biopsy with chip in place. Robotic hysterectomy 01/12/2018 Past Anesthesia/Blood Transfusion Reactions: Postoperative Nausea & Vomiting ( PONV) Past Psychological History: No Psychological Hx Reported Smoking Status: Never smoker Past Alcohol Use History: None Reported Past Drug Use History: None Reported - Past Family History Mother Family Medical History: No Reported History Medications and Allergies Home Medications Medication Instructions Recorded Confirmed Type Rifampin [Rifadin] 300 mg PO BID 06/03/17 04/17/18 History Clindamycin HCl 300 mg PO Q12HR 01/10/18 04/19/18 History Allergies Allergy/AdvReac Type Severity Reaction Status Date / Time hydrocodone [From Lortab] Allergy Severe Rash/Hives Verified 04/17/18 10:38 Sulfa (Sulfonamide Allergy Severe Anaphylaxis Verified 04/17/18 10:38 Antibiotics) Surgical - Exam Physical exam: General: Well-developed, well-nourished HEENT: Normocephalic, sclerae nonicteric Right breast: Mass present 8 o'clock Left breast: Mass present 4 o'clock Abdomen: Nontender, nondistended Extremities: No edema Neuro: Alert and oriented Assessment and Plan (1) Masses of both breasts Narrative/Plan: Will proceed with excision bilateral breast masses at this time. Current Visit: Yes Status: Acute Code(s): N63.10 - UNSPECIFIED LUMP IN THE RIGHT BREAST, UNSPECIFIED QUADRANT; N63.20 - UNSPECIFIED LUMP IN THE LEFT BREAST , UNSPECIFIED QUADRANT SNOMED Code(s): 05852376
[2018-04-19] MEDS ORDERED: BUPIVACAIN-EPI 0.25%-1:200,000 30 ML VIAL SQ ONE ×2 (10:47→12:00)
[2018-04-19] MEDS ORDERED: KETOROLAC 30 MG/ML 1 ML VIAL ONE (10:54)
[2018-04-19] MEDS ORDERED: MIDAZOLAM 2 MG/2 ML VIAL ONE (10:54)
[2018-04-19] MEDS ORDERED: PROPOFOL 10 MG/ML 20 ML VIAL IV ONE (10:54)
[2018-04-19] MEDS ORDERED: fentaNYL (PF) 50 MCG/ML 2 ML AMP ONE (10:54)
[2018-04-19] MEDS ORDERED: LIDOCAINE 1% INJ 10MG/ML (20 ML MDV) ONE (10:54)
[2018-04-19] MEDS ORDERED: HYDROmorphone (PF) 1 MG/ML ONE (10:54)
[2018-04-19] MEDS ORDERED: LACTATED RINGERS 1,000 ML IV ONE (12:00)
[2018-04-19] MEDS ORDERED: NALOXONE 0.4 MG/ML 1 ML VIAL IV PRN (12:06)
[2018-04-19] MEDS ORDERED: HYDROcodone/APAP 5-325MG 1 EACH TAB PO PRN (12:06)
--- NOTE | 2018-04-19 12:08 | P.OP ---
Date of Procedure: 04/19/18 Procedure(s) Performed: PREOPERATIVE DIAGNOSIS: Bilateral breast masses POSTOPERATIVE DIAGNOSIS: Same PROCEDURE: Bilateral breast lumpectomies SURGEON: Martha EBL: Minimal ANESTHESIA: General COMPLICATIONS: None OPERATIVE PROCEDURE: placed in the operative table in the supine position. The chest was prepped and draped in usual sterile fashion. The right side was first addressed. An elliptical incision was made overlying the palpable mass right breast 8:00. Subcutaneous tissues were divided using electrocautery. The mass was easily excised with the use of electrocautery. This measured 4.5 x 2.5 cm in size. Subcutaneous tissues were closed using 3-0 Vicryl sutures. The skin was closed using 4-0 Monocryl sutures. The left side was then addressed in a similar fashion. This lesion was present at 3:00. This was again excised using the cautery. This measured 3 x [address] in a similar fashion. Skin glue was used on both incision sites. DISPOSITION: Stable to recovery room
[2018-04-19 12:17] VITALS: TEMP 97.3
[2018-04-19 13:24] VITALS: BP 114/62; PULSE 83; RESP 18
== END 2018-04-19 13:49 | disposition home or self-care (01) ==
LOC: OR 09:40
PROVIDERS: ATTEND Surgery
DX: D24.2 Benign neoplasm of left breast (principal); D24.1 Benign neoplasm of right breast; I34.1 Nonrheumatic mitral (valve) prolapse; L73.2 Hidradenitis suppurativa; Z79.2 Long term (current) use of antibiotics; Z79.899 Other long term (current) drug therapy; Z88.5 Allergy status to narcotic agent; Z88.2 Allergy status to sulfonamides; Z90.710 Acquired absence of both cervix and uterus
CPT/HCPCS: 88305; 19120; J2250; J1644; J1100; J2405; J2001; J3010; J1885; J1170; J2704

== ENCOUNTER → 2022-03-24 | Outpatient (CLI) | payer OTHER ==
--- NOTE | 2022-03-24 19:44 | CA ---
Transthoracic Echo Report Name: Sinan Saravia Age: 46 Gender: F : 1975 Exam Date: 03/24/2022 13:38 Exam Location: [facility] Echo Ht (in): 63 Wt (lb): 205 Ordering Physician: Reinaldo Sandoval DO Attending/Referring Phys: Assembler Arranger Sara Medina RDCS Procedure CPT: Indications: I34.1 NONRHEUMATIC MITRAL (VALVE) PROLAPSE Cardiac Hx: Technical Quality: Contrast 1: Total Dose (mL): Contrast 2: Total Dose (mL): MEASUREMENTS (Male / Female) Normal Values 2D ECHO LV Diastolic Diameter PLAX 5.0 cm 4.2 - 5.9 / 3.9 - 5.3 cm LV Systolic Diameter PLAX 4.2 cm IVS Diastolic Thickness 1.2 cm 0.6 - 1.0 / 0.6 - 0.9 cm LVPW Diastolic Thickness 0.8 cm 0.6 - 1.0 / 0.6 - 0.9 cm LV Relative Wall Thickness 0.4 RV Internal Dim ED PLAX 2.3 cm LA Systolic Diameter LX 3.0 cm 3.0 - 4.0 / 2.7 - 3.8 cm LA Volume 46.7 cm??? 18 - 58 / 22 - 52 cm??? M-MODE Aortic Root Diameter MM 2.5 cm LA Systolic Diameter MM 3.5 cm LA Ao Ratio MM 1.4 MV E Point Septal Separation 0.8 cm AV Cusp Separation MM 1.9 cm DOPPLER MV Area PHT 3.2 cm??? Mitral E Point Velocity 76.6 cm/s Mitral A Point Velocity 76.1 cm/s Mitral E to A Ratio 1.0 MV Deceleration Time 237.3 ms MV E' Velocity 6.3 cm/s Mitral E to MV E' Ratio 12.2 TR Peak Velocity 211.2 cm/s TR Peak Gradient 17.8 mmHg Right Ventricular Systolic Press 22.8 mmHg FINDINGS Left Ventricle Mildly increased septal wall thickness. Left ventricular ejection fraction is estimated at 50-55%. Right Ventricle Normal right ventricular size and function. Right Atrium Normal right atrial size. Left Atrium Normal left atrial size. Mitral Valve Structurally normal mitral valve. Mild mitral regurgitation. Aortic Valve Trileaflet aortic valve. Tricuspid Valve Structurally normal tricuspid valve. Pulmonic Valve Structurally normal pulmonic valve. Pericardium Normal pericardium. Aorta Normal size aortic root and proximal ascending aorta. CONCLUSIONS Technically difficult study for interpretation Normal left ventricular dimension and systolic function Previewed by: Dr. Bahman Bautista MD (Electronically Signed) Final Date: 24 March 2022 19:43
== END | disposition home or self-care (01) ==
LOC: RADECHMAIN 13:19
PROVIDERS: ATTEND Family Medicine
DX: I34.1 Nonrheumatic mitral (valve) prolapse (principal)
CPT/HCPCS: 93306

== ENCOUNTER → 2022-05-14 | Outpatient (CLI) | payer OTHER ==
--- NOTE | 2022-05-17 08:27 | MM ---
Reason for Exam: Screening (asymptomatic). Last mammogram was performed 5 year(s) and 6 month(s) ago. Patient History: Menarche at age 11. Patient has no children. Perimenopausal. 2013, Benign Excisional Biopsy on the right side. 11/08/2016, Benign Core Biopsy on the left side. 11/08/2016, Benign Core Biopsy on the right side. Maternal aunt had pancreatic cancer at or over age 50. Risk Values: Bhavna 5 year model risk: 2.5%. NCI Lifetime model risk: 18.1%. Prior Study Comparison: 09/22/2016 Bilateral Diagnostic Mammogram, [facility]. 11/08/2016 Bilateral Diagnostic Mammogram, [facility]. Tissue Density: The breast tissue is extremely dense which could obscure a lesion on mammography. Findings: Analyzed By CAD. Patient must have had interval excision as prior biopsy clip right breast now not clearly identified with subtle distortion at this level posteriorly now seen. Benign-appearing bilateral axillary lymph nodes are redemonstrated. Possible obscured masses within the anterior left breast lower aspect on background dense tissue. There is no suspicious group of microcalcifications in either breast. Overall Assessment: Incomplete: need additional imaging evaluation, BI-RAD 0 Management: Diagnostic Breast Ultrasound of the left breast. Follow-up ultrasound left breast. Electronically signed and approved by: Ravi Sommer M.D.
== END | disposition home or self-care (01) ==
LOC: RADMAMWWP 06:53
PROVIDERS: ATTEND Obstetrics & Gynecology
DX: Z12.31 Encounter for screening mammogram for malignant neoplasm of breast (principal); Z80.0 Family history of malignant neoplasm of digestive organs
CPT/HCPCS: 77063; 77067

== ENCOUNTER → 2022-05-19 | Outpatient (CLI) | payer BC, OTHER ==
--- NOTE | 2022-05-19 14:16 | USB ---
Reason for Exam: Additional evaluation requested from abnormal screening. Patient History: Menarche at age 11. Patient has no children. Perimenopausal. 2013, Benign Excisional Biopsy on the right side. 11/08/2016, Benign Core Biopsy on the left side. 11/08/2016, Benign Core Biopsy on the right side. Maternal aunt had pancreatic cancer at or over age 50. Risk Values: Bhavna 5 year model risk: 2.5%. NCI Lifetime model risk: 18.1%. Technique: Method: Targeted. Prior Study Comparison: 09/22/2016 Bilateral Diagnostic Mammogram, [facility]. 11/08/2016 Bilateral Diagnostic Mammogram, [facility]. 05/14/2022 Bilateral MG 3D screening mammo w/cad, [facility]. Findings: The lower section of the breast of the left breast, the axilla of the left breast and the retroareolar of the left breast were scanned. There is a solid-appearing oval well-circumscribed lesion 1 cm from the nipple at the 4:00 position left breast. This measures 1.3 x 0.6 x 1.2 cm. Ultrasound-guided core biopsy recommended. There is an additional hypoechoic lesion at 4:00 position 3 cm from the nipple measuring 1.1 x 0.7 x 1.1 cm. This lesion may correlate with the mammographic finding. Ultrasound-guided core biopsy recommended. Overall Assessment: Suspicious, BI-RAD 4 Management: Ultrasound Core Biopsy of the left breast. A clinical breast exam by your physician is recommended on an annual basis and results should be correlated with mammographic findings. This exam should not preclude additional follow-up of suspicious palpable abnormalities. Results were given to the patient verbally at the time of exam. Electronically signed and approved by: Sebastien Fitzpatrick D.O. Radiologis
== END | disposition home or self-care (01) ==
LOC: RADUSWWP 12:48
PROVIDERS: ATTEND Obstetrics & Gynecology
DX: R92.8 Other abnormal and inconclusive findings on diagnostic imaging of breast (principal); Z80.0 Family history of malignant neoplasm of digestive organs

== ENCOUNTER → 2022-05-27 | Day surgery (SDC) | payer BC ==
--- NOTE | 2022-06-02 08:45 | MM ---
Reason for Exam: Post Procedure Mammogram. Last screening mammogram was performed less than 1 month ago. Patient History: Menarche at age 11. Patient has no children. Perimenopausal. 2013, Benign Excisional Biopsy on the right side. 11/08/2016, Benign Core Biopsy on the left side. 11/08/2016, Benign Core Biopsy on the right side. Maternal aunt had pancreatic cancer at or over age 50. Risk Values: Bhavna 5 year model risk: 2.5%. NCI Lifetime model risk: 18.1%. Prior Study Comparison: 09/22/2016 Bilateral Diagnostic Mammogram, [facility]. 11/08/2016 Bilateral Diagnostic Mammogram, [facility]. 05/14/2022 Bilateral MG 3D screening mammo w/cad, [facility]. 05/19/2022 Left US breast workup limited , [facility]. Tissue Density: Left: The breast tissue is extremely dense which could obscure a lesion on mammography. Pathology Description: Location: 4 o'clock, anterior. Marker Left Behind. Needle Type: Mammotome Cores: 5 Gauge: 13 Pathology Description: Location: 4 o'clock, retroareolar. Marker Left Behind. Needle Type: Mammotome Cores: 4 Gauge: 13 The procedure of ultrasound guided core biopsy was explained to the patient. Benefits, alternatives, and risks were discussed. An informed consent was then obtained. The patient was placed in supine positioning for imaging and for the procedure. The overlying skin was prepped and draped in usual sterile fashion. Lidocaine was used as anesthetic into the skin and subcutaneous tissue up to area of concern in the 4:00 position for the lesion 1 cm from the nipple and 3 cm from the nipple at each site in turn within the left breast. SITE A, 4:00, 1 cm from the nipple: Under ultrasound guidance, a a 13-gauge vacuum-assisted mammotome biopsy gun was used to obtain 4 core samples. Following this, a Hydromark butterfly clip was left in lesion. SITE A, 4:00, 3 cm from the nipple: Under ultrasound guidance, a a 13-gauge vacuum-assisted mammotome biopsy gun was used to obtain 5 core samples. Following this, a Hydromark coil clip was left in lesion. Both lesions suspected fibroadenomas. The patient tolerated the procedure well without any immediate complication. The patient was kept in the radiology department for short stay after the procedure and then discharged home in stable condition. Postprocedure mammogram: The patient was transferred to mammography for physician ordered post procedure mammogram for clip placement verification. Postbiopsy mammogram shows very dense breast tissues with both microclips in place. Impression: Successful, uncomplicated two site ultrasound guided core biopsy at the 4:00 position for suspected small fibroadenomas; full pathology results to follow. Pathology Results: Result: Benign, Fibroadenoma. A. LEFT BREAST, 4:00, ULTRASOUND GUIDED NEEDLE CORE BIOPSY: Fibroadenoma and background fibrocystic changes. B. LEFT BREAST, 4:00, ULTRASOUND GUIDED NEEDLE CORE BIOPSY: Fibroadenoma and background fibrocystic changes including rare microcalcifications. Overall Assessment: Benign Assessment: MG diagnostic mammo LT wo CAD. - Left: Benign, BI-RAD 2. Management: Diagnostic Breast Ultrasound of the left breast in 6 months. Electronically signed and approved by: Kyara Thurston M.D. Radiologist
== END ==
LOC: RADUSWWP 12:53
PROVIDERS: ATTEND Surgery
DX: D24.2 Benign neoplasm of left breast (principal); N60.12 Diffuse cystic mastopathy of left breast; R92.0 Mammographic microcalcification found on diagnostic imaging of breast
CPT/HCPCS: 88305; 77065; 19083; 19084; A4648

== ENCOUNTER → 2022-06-03 | Outpatient (CLI) | payer BC ==
--- NOTE | 2022-06-03 10:12 | P.GSHP ---
History of Present Illness H&P Date: 06/03/22 Chief Complaint: Fibroadenoma 2 sites left breast Sinan is a 46-year-old white female seen in consultation for Dr. Rodriguez, Dr. Sandoval regarding ultrasound-guided core biopsy of 2 sites in the left breast which revealed fibroadenoma. She underwent a bilateral screening mammogram on [id number]. This revealed areas of concern for which an ultrasound was recommended. Ultrasound was performed and 1423. On the ultrasound there were 2 lesions identified near the 4 o'clock position. One was 1.3 cm in size and the second was 1.1 cm in size. Ultrasound core biopsy was recommended. This was performed on . Ultrasound core biopsy of both sides revealed fibroadenomas. The patient does not feel anything of concern in her breast. This was found on a screening radiogra She has had two fibroadnenomas removed form the left breast in the past. She has also had tissue removed form the left arm pit. She has had a biopsy on the right which was a fibroadenoma 2013 which was not removed. Caffiene: 2 cups in am nicotine: none chocolate: occasional BCP: 20 years had a partial hysterecotmy in 2018 Family History: maternal uncle: pancreatac and liver cancer maternal aunt: pancreatic and liver cancer, ovarian cancer maternal aunt: colon cancer paternal grandfather: colon cancer paternal grandmother: colon cnacer Hormonal History: menarche: 11 G0 intentional menopause: partial hysterectomy in 2018; not in menopuase yet BCP: used them for 25 years hormones: none Surgical History: sinus surgery tonsil and adenoids hysterectomy breast biospys Medical History: hydroadenitis supprativa mitral valve prolapse Social History: nicotine: none alcohol: none; used to drink stopped 6 years ago drugs: none - Constitutional Constitutional: Denies chills, Denies fever - EENT Comment: iritis 12 years ago Eyes: denies blurred vision, denies pain Ears: deny: decreased hearing, tinnitus Ears, nose, mouth and throat: Denies headache, Denies sore throat - Breasts Breasts: bilateral: as per HPI - Cardiovascular Cardiovascular: Denies chest pain, Denies shortness of breath - Respiratory Respiratory: Denies cough, Denies 7 - Gastrointestinal Gastrointestinal: Denies abdominal pain, Denies diarrhea, Denies nausea, Denies vomiting - Genitourinary (Female) Genitourinary: Denies dysuria, Denies hematuria - Menstruation Menstruation: Reports post hysterectomy - Musculoskeletal Musculoskeletal: Denies myalgias - Integumentary Integumentary: Reports as per HPI - Neurological Neurological: Denies numbness, Denies weakness - Psychiatric Psychiatric: Reports anxiety, Denies depression - Endocrine Endocrine: Reports weight change - Hematologic/Lymphatic Comment: none - Allergic/Immunologic Allergic/Immunologic: Reports as per HPI Past Medical History Past Medical History: Mitral Valve Prolapse (MVP) Additional Past Medical History / Comment(s): HIDRADENITIS SUPPURATIVA History of Any Multi-Drug Resistant Organisms: None Reported Past Surgical History: Adenoidectomy, Hysterectomy, Tonsillectomy Additional Past Surgical History / Comment(s): SINUS SX SECONDARY INFECTION @ 12 Y/O. RIGHT AXILLA EXCISIONAL (BENIGN)-2005. LEFT BREAST EXCISIONAL (BENIGN)- 2005. 2 breast biopsy with chip in place. Robotic hysterectomy 01/12/2018 Past Anesthesia/Blood Transfusion Reactions: Postoperative Nausea & Vomiting (PONV) Past Psychological History: No Psychological Hx Reported Smoking Status: Never smoker Past Alcohol Use History: None Reported Past Drug Use History: None Reported - Past Family History Mother Family Medical History: No Reported History Medications and Allergies Home Medications Medication Instructions Recorded Confirmed Type Spironolactone [Aldactone] 100 mg PO DAILY 05/20/22 05/20/22 History Allergies Allergy/AdvReac Type Severity Reaction Status Date / Time hydrocodone [From Lortab] Allergy Severe Rash/Hives Verified 05/20/22 13:20 Sulfa (Sulfonamide Allergy Severe Anaphylaxis Verified 05/20/22 13:20 Antibiotics) Surgical - Exam - General no distress - Eyes normal ocular movement - ENT no hearing loss - Neck trachea midline - Respiratory normal respiratory effort - Cardiovascular Rhythm: regular Heart Sounds: normal: S1, S2 - Abdomen Abdomen: soft, non tender, no guarding, no rigid, no rebound - Integumentary normal turgor - Neurologic no disoriented, no combative - Musculoskeletal normal posture - Psychiatric oriented to time, oriented to person, oriented to place, speech is normal, memory intact Breast Exam: BRA; 38C inspection: Bilateral grade 3 ptosis Palpation: Right breast: Multiple positional exam dense breast no dominant masses or nodules of concern Fibrocystic changes Right axilla: No adenopathy of concern Left breast: Multi-positional exam dense breasts no dominant masses or nodules of concern, fibrocystic changes Left axilla: No adenopathy of concern Results Mammogram and ultrasound personally reviewed Assessment and Plan Assessment: Impression: Dense breast Fibrocystic breast changes Fibroadenoma 2 sites in the left breast nonpalpable asymptomatic Plan: Close surveillance Repeat left breast ultrasound in 6 months with physician exam at that time At this time I would not recommend excision of Katrina lesions growing bothering the patient Cc: Dr. Rodriguez, Dr. Sandoval
[2022-06-03 11:00] VITALS: BP 115/79; PULSE 67; RESP 17; TEMP 97.9
== END ==
LOC: WWCWWP 09:12
PROVIDERS: ATTEND Surgery
DX: N60.22 Fibroadenosis of left breast (principal); Z85.3 Personal history of malignant neoplasm of breast; Z88.5 Allergy status to narcotic agent; Z88.2 Allergy status to sulfonamides

== ENCOUNTER 2022-08-27 11:09 | Day surgery (SDC) | payer BC ==
[~2022-08-27 11:09] MED LIST changes: -DEXAMETHASONE SOD PHOSPHATE 10 MG/ML 1 ML VIAL IV ONE; -HEPARIN SODIUM,PORCINE 5,000 UNIT/ML 1 ML VIAL SQ ONE; -HYDROmorphone 0.5 MG/0.5 ML SYRINGE IVP PRN; +LIDOCAINE 1% (10MG/ML) FOR IV START INTRADERMA PRN; -LIDOCAINE 1% 20 ML VIAL (10MG/ML) FOR IV START INTRADERMA PRN; -MIDAZOLAM 2 MG/2 ML VIAL IV PRN; -ONDANSETRON 4 MG/2 ML VIAL IVP ONE; -Pre Op ABX Message 1 EACH MISC MISCELLANE ONE; -SCOPOLAMINE 1.5MG/72HR PATCH TRANSDERM ONE
[2022-08-27 11:37] VITALS: TEMP 97.9
[2022-08-27] MEDS ORDERED: LIDOCAINE 2% INJ 20 MG/ML (2 ML VIAL) ONE (12:14)
[2022-08-27] MEDS ORDERED: PROPOFOL 10 MG/ML 20 ML VIAL IV ONE (12:14)
--- NOTE | 2022-08-27 12:35 | P.PCN ---
Date of Procedure: 08/27/22 Procedure(s) Performed: BRIEF HISTORY: Patient is a 46-year-old [place] female scheduled for an elective colonoscopy as a part of screening for colon cancer and strong family history of colon cancer. Her maternal aunt was diagnosed with colon cancer at age 60 of her maternal uncle at age 45. PROCEDURE PERFORMED: Colonoscopy. PREOPERATIVE DIAGNOSIS: Screening for colon cancer and family history of colon cancer. IV sedation per Anesthesia. PROCEDURE: After informed consent was obtained, the patient, was brought into the endoscopy unit. IV sedation was administered by Anesthesia under continuous monitoring. Digital rectal examination was normal. Initially the Olympus CF-160 flexible video colonoscope was then inserted in the rectum, gradually advanced into the cecum without any difficulty. Careful examination was performed as the scope was gradually being withdrawn. Ileocecal valve and the appendiceal orifice were visualized and appeared normal. Prep was excellent. Mucosa of the cecum, ascending colon, transverse colon, descending colon, sigmoid colon, and rectum appeared normal. Retroflexion was performed in the rectum and no lesions were seen. The patient tolerated the procedure well. IMPRESSION: Normal-appearing colon from rectum to cecum with no evidence of colorectal neoplasia . RECOMMENDATIONS: Findings of this examination were discussed with the patient as well as a family.. She was advised to have a repeat screening colonoscopy every 5 years because of family history of colon cancer
[2022-08-27 12:42] VITALS: RESP 16
[2022-08-27 12:55] VITALS: BP 116/77; PULSE 85
== END 2022-08-27 13:16 | disposition home or self-care (01) ==
LOC: ORWHC2ENDO 11:09
PROVIDERS: ATTEND Internal Medicine Gastroenterology
DX: Z12.11 Encounter for screening for malignant neoplasm of colon (principal); Z80.0 Family history of malignant neoplasm of digestive organs; I34.1 Nonrheumatic mitral (valve) prolapse; Z87.891 Personal history of nicotine dependence; Z88.2 Allergy status to sulfonamides; Z88.5 Allergy status to narcotic agent; Z79.899 Other long term (current) drug therapy
CPT/HCPCS: 45378; J2704; J2001

== ENCOUNTER 2023-05-13 09:22 | Emergency (ER) | payer BC ==
[2023-05-13 10:31] LABS: Basophils % (A) 0 %; Eosinophils # (A) 0.1 k/uL (0-0.7); Eosinophils % (A) 1 %; HCT 42.5 % (34.0-46.0); HGB 14.6 gm/dL (11.4-16.0); Lymphocytes # (A) 2.8 k/uL (1.0-4.8); Lymphocytes % (A) 28 %; MCH 29.4 pg (25.0-35.0); MCHC 34.3 g/dL (31.0-37.0); MCV 85.7 fL (80.0-100.0); Mean Platelet Volume 8.3; Monocytes # (A) 0.4 k/uL (0-1.0); Monocytes % (A) 4 %; Neutrophils # (A) 6.4 k/uL (1.3-7.7); Neutrophils % (A) 64 %; Platelet Count 283 k/uL (150-450); RBC 4.96 m/uL (3.80-5.40); RDW 12.4 % (11.5-15.5); WBC 10.1 k/uL (3.8-10.6)
[2023-05-13 10:41] LABS: Partial Thromboplastin Time 27.6 sec (22.0-30.0); Prothrombin Time 10.6 sec (10.0-12.5)
[2023-05-13 10:57] LABS: Appearance,Urine Clear (Clear); Bilirubin,Urine Negative (Negative); Blood,Urine Negative (Negative); Color,Urine Colorless; Glucose,Urine (UA) Negative (Negative); Ketones,Urine Negative (Negative); Leukocyte Esterase,Urine Negative (Negative); Nitrite,Urine Negative (Negative); Protein,Urine Negative (Negative); Specific Gravity,Urine 1.005 (1.001-1.035); Urobilinogen,Urine <2.0 mg/dL (<2.0)
[2023-05-13 10:59] LABS: ALT 29 U/L (4-34); AST 28 U/L (14-36); African American GFR (CKD) >90 (>60 ml/min/1.73 sqM); Albumin 4.8 g/dL (3.5-5.0); Alkaline Phosphatase 53 U/L (38-126); Anion Gap 14 mmol/L; Blood Urea Nitrogen 9 mg/dL (7-17); Calcium 10.4 mg/dL (8.4-10.2); Carbon Dioxide 25 mmol/L (22-30); Chloride 102 mmol/L (98-107); Glucose 91 mg/dL (74-99); Non-African American GFR(CKD) >90 (>60 ml/min/1.73 sqM); Potassium 4.5 mmol/L (3.5-5.1); Sodium 141 mmol/L (137-145); Total Bilirubin 0.6 mg/dL (0.2-1.3); Total Protein 8.1 g/dL (6.3-8.2)
--- NOTE | 2023-05-13 11:01 | ED ---
General Adult HPI - General Chief complaint: Chest Pain Stated complaint: chest pain Time Seen by Provider: 05/13/23 09:53 Source: patient Mode of arrival: EMS Limitations: no limitations - History of Present Illness Initial comments: Dictation was produced using [employer] dictation software. please excuse any grammatical, word or spelling errors. Chief Complaint: 47-year-old female presents emergency Department with calf pain and chest pain History of Present Illness: Is 47-year-old female she has history of mitral valve prolapse, hydradenitis super a table and hypertension. She takes spironolactone. Patient states for the last several weeks she's been having intermittent episodes of substernal chest pressure along with left anterior chest ache. States that sometimes it radiates to the back. Denies any numbness tingling paresthesias to the lower extremities. She does complain of some swelling and Tenderness to the left calf. States that she gets intermittent episodes that seem to be worse when she stands for prolonged periods. Denies any shortness of breath. Denies any fever or constitutional symptoms. Patient travels often for work. The ROS documented in this emergency department record has been reviewed and confirmed by me. Those systems with pertinent positive or negative responses have been documented in the HPI. All other systems are other negative and/or noncontributory. - Related Data Home Medications Medication Instructions Recorded Confirmed Spironolactone [Aldactone] 100 mg PO HS 05/20/22 05/13/23 Copper 9 gram PO HS 08/24/22 05/13/23 L-Theanine (Unknown) 1 tab PO HS 08/24/22 05/13/23 Magnesium Citrate And Taurate 1 dose PO HS 05/13/23 05/13/23 Multivit with Calcium,Iron,Min 1 tab PO W/BRKFST 05/13/23 05/13/23 [Women's Multivitamin] Zinc 30 mg PO HS 05/13/23 05/13/23 Allergies Allergy/AdvReac Type Severity Reaction Status Date / Time hydrocodone [From Lortab] Allergy Severe Anaphylaxis Verified 05/13/23 11:33 Sulfa (Sulfonamide Allergy Severe Anaphylaxis Verified 05/13/23 09:35 Antibiotics) sulfamethoxazole Allergy Anaphylaxis Verified 05/13/23 11:33 [From Bactrim] trimethoprim [From Bactrim] Allergy Anaphylaxis Verified 05/13/23 11:33 Review of Systems ROS Statement: Those systems with pertinent positive or pertinent negative responses have been documented in the HPI. ROS Other: All systems not noted in ROS Statement are negative. Past Medical History Past Medical History: Mitral Valve Prolapse (MVP) Additional Past Medical History / Comment(s): HIDRADENITIS SUPPURATIVA (skin condition) History of Any Multi-Drug Resistant Organisms: None Reported Past Surgical History: Adenoidectomy, Hysterectomy, Tonsillectomy Additional Past Surgical History / Comment(s): SINUS SX SECONDARY INFECTION @ 12 Y/O. RIGHT AXILLA EXCISIONAL (BENIGN)-2005. LEFT BREAST EXCISIONAL (BENIGN)- 2005. 2 breast biopsy with chip in place. Robotic hysterectomy 01/12/2018 Past Anesthesia/Blood Transfusion Reactions: Postoperative Nausea & Vomiting (PONV) Past Psychological History: Anxiety Smoking Status: Former smoker Past Alcohol Use History: None Reported Past Drug Use History: None Reported - Past Family History Mother Family Medical History: No Reported History General Exam - General Exam Comments Initial Comments: PHYSICAL EXAM: General Impression: Alert and oriented x3, not in acute distress HEENT: Normocephalic atraumatic, extra-ocular movements intact, pupils equal and reactive to light bilaterally, mucous membranes moist. Cardiovascular: Heart regular rate and rhythm Chest: Able to complete full sentences, no retractions, no tachypnea Abdomen: abdomen soft, non-tender, non-distended, no organomegaly Musculoskeletal: Pulses present and equal in all extremities, no peripheral ed jose Motor: no focal deficits noted Neurological: CN II-XII grossly intact, no focal motor or sensory deficits noted Skin: Intact with no visualized rashes Psych: Normal affect and mood Limitations: no limitations Course Vital Signs 05/13/23 05/13/23 05/13/23 09:29 10:25 10:26 Temperature 97.9 F Pulse Rate 80 79 Pulse Rate [ 81 Furnace Liner ] Respiratory 18 17 Rate Blood Pressure 123/86 128/79 O2 Sat by Pulse 100 96 Oximetry 05/13/23 11:02 Temperature Pulse Rate 75 Pulse Rate [ Furnace Liner ] Respiratory 16 Rate Blood Pressure 131/79 O2 Sat by Pulse 97 Oximetry EKG Findings - EKG Comments: EKG Findings:: My EKG interpretation: Ventricular rate 81, sinus rhythm, CT interval 134, QRS 86, QTC 298. No CT prolongation, no QTC prolongation, no ST or T-wave changes noted. Overall, this EKG is unremarkable Medical Decision Making - Medical Decision Making Was pt. sent in by a medical professional or institution (, [facility], RIGHT OF WAY BUYER, urgent care, hospital, or halfway...) When possible be specific @ -No Did you speak to anyone other than the patient for history (EMS, parent, family, police, friend...)? What history was obtained from this source @ -No Did you review nursing and triage notes (agree or disagree)? Why? @ -I reviewed and agree with nursing and triage notes Were old charts reviewed (outside hosp., previous admission, EMS record, old EKG, old radiological studies, urgent care reports/EKG's, halfway records)? Report findings @ -No old charts were reviewed Differential Diagnosis (chest pain, altered mental status, abdominal pain women, abdominal pain men, vaginal bleeding, musculoskeletal, weakness, fever, dyspnea, syncope, headache, dizziness, GI bleed, back pain, seizure, CVA, palpatations, mental health)? @ -Differential Chest Pain: Stable Angina, Unstable Angina, STEMI, NSTEMI Aortic Dissection, Pneumothorax, Musculoskeletal, Esophageal Spasm GERD, Cholecystitis, Pancreatitis, Zoster, this is not meant to be an all-inclusive list. EKG interpreted by me (3pts min.). @ -See above X-rays interpreted by me (1pt min.). @ -X-ray of the chest shows no acute processes CT interpreted by me (1pt min.). @ -None done U/S interpreted by me (1pt. min.). @ -None done What testing was considered but not performed or refused? (CT, X-rays, U/S, labs)? Why? @ -None What meds were considered but not given or refused? Why? @ -None Did you discuss the management of the patient with other professionals (professionals i.e. , [facility], RIGHT OF WAY BUYER, lab, RT, psych nurse, clinical social work aide, imaging system administrator, teacher, corrections officer, nurse case management)? Give summary @ -No Was smoking cessation discussed for >3mins.? @ -No Was critical care preformed (if so, how long)? @ -No Were there social determinants of health that impacted care today? How? (Homelessness, low income, unemployed, alcoholism, drug addiction, transportation, low edu. Level, literacy, decrease access to med. care, care home, rehab)? @ -No Was there de-escalation of care discussed even if they declined (Discuss DNR or withdrawal of care, Hospice)? DNR status @ -No What co-morbidities impacted this encounter? (DM, HTN, Smoking, COPD, CAD, Cancer, CVA, ARF, Chemo, Hep., AIDS, mental health diagnosis, sleep apnea, morbid obesity)? @ -None Was patient admitted / discharged? Hospital course, mention meds given and route, prescriptions, significant lab abnormalities, going to OR and other pertinent info. @ -47-year-old female presents emergency department with atypical chest pain with typical features. Patient is low risk. Vital signs stable. EKG is unremarkable. Patient does not have any significant family history of coronary artery disease, myocardial infarction or sudden cardiac . Laboratory evaluation is unremarkable. D-dimer is negative. Troponin is negative. Urinalysis negative. Viral testing is negative. Patient reevaluated at bedside she is discharged told to follow up with medicare insurance specialist for outpatient stress tests and Holter monitor. Patient is low heart score Undiagnosed new problem with uncertain prognosis? @ -No Drug Therapy requiring intensive monitoring for toxicity (Heparin, Nitro, Insulin, Cardizem)? @ -No Were any procedures done? @ -No Diagnosis/symptom? Acute, or Chronic, or Acute on Chronic? Uncomplicated (without systemic symptoms) or Complicated (systemic symptoms)? @ -Chest pain, no high-risk features Side effects of treatment? @ -No Exacerbation, Progression, or Severe Exacerbation? @ -No Poses a threat to life or bodily function? How? (Chest pain, [place], [place], pneumonia, PE, COPD, DKA, ARF, appy, cholecystitis, CVA, Diverticulitis, Homicidal, Suic idal, threat to staff... and all critical care pts) @ -No - Lab Data Result diagrams: 05/13/23 10:23 05/13/23 10: Lab Results 05/13/23 05/13/23 05/13/23 Range/Units 10:23 10: 10: WBC 10.1 (3.8-10.6) k/uL RBC 4.96 (3.80-5.40) m/uL Hgb 14.6 (11.4-16.0) gm/dL Hct 42.5 (34.0-46.0) % MCV 85.7 (80.0-100.0) fL MCH 29.4 (25.0-35.0) pg MCHC 34.3 (31.0-37.0) g/dL RDW 12.4 (11.5-15.5) % Plt Count 283 (150-450) k/uL MPV 8.3 Neutrophils % 64 % Lymphocytes % 28 % Monocytes % 4 % Eosinophils % 1 % Basophils % 0 % Neutrophils # 6.4 (1.3-7.7) k/uL Lymphocytes # 2.8 (1.0-4.8) k/uL Monocytes # 0.4 (0-1.0) k/uL Eosinophils # 0.1 (0-0.7) k/uL Basophils # 0.0 (0-0.2) k/uL PT 10.6 (10.0-12.5) sec INR 1.0 (<1.2) APTT 27.6 (22.0-30.0) sec D-Dimer (<0.60) mg/L FEU Sodium (137-145) mmol/L Potassium (3.5-5.1) mmol/L Chloride (98-107) mmol/L Carbon Dioxide (22-30) mmol/L Anion Gap mmol/L BUN (7-17) mg/dL Creatinine (0.52-1.04) mg/dL Est GFR (CKD-EPI)AfAm (>60 ml/min/1.73 sqM) Est GFR (CKD-EPI)NonAf (>60 ml/min/1.73 sqM) Glucose (74-99) mg/dL Calcium (8.4-10.2) mg/dL Total Bilirubin (0.2-1.3) mg/dL AST (14-36) U/L ALT (4-34) U/L Alkaline Phosphatase (38-126) U/L Troponin I (0.000-0.034) ng/mL Total Protein (6.3-8.2) g/dL Albumin (3.5-5.0) g/dL Urine Color Colorless Urine Appearance Clear (Clear) Urine pH 7.0 (5.0-8.0) Ur Specific [place] 1.005 (1.001-1.035) Urine Protein Negative (Negative) Urine Glucose (UA) Negative (Negative) Urine Ketones Negative (Negative) Urine Blood Negative (Negative) Urine Nitrite Negative (Negative) Urine Bilirubin Negative (Negative) Urine Urobilinogen <2.0 (<2.0) mg/dL Ur Leukocyte Esterase Negative (Negative) Influenza Type A (PCR) (Not Detectd) Influenza Type B (PCR) (Not Detectd) RSV (PCR) (Not Detectd) SARS-CoV-2 (PCR) (Not Detectd) 05/13/23 05/13/23 05/13/23 Range/Units 10:23 10: 10:23 WBC (3.8-10.6) k/uL RBC (3.80-5.40) m/uL Hgb (11.4-16.0) gm/dL Hct (34.0-46.0) % MCV (80.0-100.0) fL MCH (25.0-35.0) pg MCHC (31.0-37.0) g/dL RDW (11.5-15.5) % Plt Count (150-450) k/uL MPV Neutrophils % % Lymphocytes % % Monocytes % % Eosinophils % % Basophils % % Neutrophils # (1.3-7.7) k/uL Lymphocytes # (1.0-4.8) k/uL Monocytes # (0-1.0) k/uL Eosinophils # (0-0.7) k/uL Basophils # (0-0.2) k/uL PT (10.0-12.5) sec INR (<1.2) APTT (22.0-30.0) sec D-Dimer (<0.60) mg/L FEU Sodium 141 (137-145) mmol/L Potassium 4.5 (3.5-5.1) mmol/L Chloride 102 (98-107) mmol/L Carbon Dioxide 25 (22-30) mmol/L Anion Gap 14 mmol/L BUN 9 (7-17) mg/dL Creatinine 0.65 (0.52-1.04) mg/dL Est GFR (CKD-EPI)AfAm >90 (>60 ml/min/1.73 sqM) Est GFR (CKD-EPI)NonAf >90 (>60 ml/min/1.73 sqM) Glucose 91 (74-99) mg/dL Calcium 10.4 H (8.4-10.2) mg/dL Total Bilirubin 0.6 (0.2-1.3) mg/dL AST 28 (14-36) U/L ALT 29 (4-34) U/L Alkaline Phosphatase 53 (38-126) U/L Troponin I <0.012 (0.000-0.034) ng/mL Total Protein 8.1 (6.3-8.2) g/dL Albumin 4.8 (3.5-5.0) g/dL Urine Color Urine Appearance (Clear) Urine pH (5.0-8.0) Ur Specific [place] (1.001-1.035) Urine Protein (Negative) Urine Glucose (UA) (Negative) Urine Ketones (Negative) Urine Blood (Negative) Urine Nitrite (Negative) Urine Bilirubin (Negative) Urine Urobilinogen (<2.0) mg/dL Ur Leukocyte Esterase (Negative) Influenza Type A (PCR) Not Detected (Not Detectd) Influenza Type B (PCR) Not Detected (Not Detectd) RSV (PCR) Not Detected (Not Detectd) SARS-CoV-2 (PCR) Not Detected (Not Detectd) 05/13/23 Range/Units 10:23 WBC (3.8-10.6) k/uL RBC (3.80-5.40) m/uL Hgb (11.4-16.0) gm/dL Hct (34.0-46.0) % MCV (80.0-100.0) fL MCH (25.0-35.0) pg MCHC (31.0-37.0) g/dL RDW (11.5-15.5) % Plt Count (150-450) k/uL MPV Neutrophils % % Lymphocytes % % Monocytes % % Eosinophils % % Basophils % % Neutrophils # (1.3-7.7) k/uL Lymphocytes # (1.0-4.8) k/uL Monocytes # (0-1.0) k/uL Eosinophils # (0-0.7) k/uL Basophils # (0-0.2) k/uL PT (10.0-12.5) sec INR (<1.2) APTT (22.0-30.0) sec D-Dimer 0.20 (<0.60) mg/L FEU Sodium (137-145) mmol/L Potassium (3.5-5.1) mmol/L Chloride (98-107) mmol/L Carbon Dioxide (22-30) mmol/L Anion Gap mmol/L BUN (7-17) mg/dL Creatinine (0.52-1.04) mg/dL Est GFR (CKD-EPI)AfAm (>60 ml/min/1.73 sqM) Est GFR (CKD-EPI)NonAf (>60 ml/min/1.73 sqM) Glucose (74-99) mg/dL Calcium (8.4-10.2) mg/dL Total Bilirubin (0.2-1.3) mg/dL AST (14-36) U/L ALT (4-34) U/L Alkaline Phosphatase (38-126) U/L Troponin I (0.000-0.034) ng/mL Total Protein (6.3-8.2) g/dL Albumin (3.5-5.0) g/dL Urine Color Urine Appearance (Clear) Urine pH (5.0-8.0) Ur Specific [place] (1.001-1.035) Urine Protein (Negative) Urine Glucose (UA) (Negative) Urine Ketones (Negative) Urine Blood (Negative) Urine Nitrite (Negative) Urine Bilirubin (Negative) Urine Urobilinogen (<2.0) mg/dL Ur Leukocyte Esterase (Negative) Influenza Type A (PCR) (Not Detectd) Influenza Type B (PCR) (Not Detectd) RSV (PCR) (Not Detectd) SARS-CoV-2 (PCR) (Not Detectd) Disposition Clinical Impression: Chest pain Disposition: HOME SELF-CARE Condition: Good Instructions (If sedation given, give patient instructions): Chest Pain (ED) Is patient prescribed a controlled substance at d/c from ED?: No Referrals: Raúl Kong DO [STAFF PHYSICIAN] - 1-2 days Time of Disposition: 12:03
--- NOTE | 2023-05-13 11:30 | XR ---
EXAMINATION TYPE: XR chest 2V DATE OF EXAM: 05/13/2023 10:37 AM CLINICAL INDICATION:Female, 47 years old with history of chest pain; [facility] COMPARISON: None TECHNIQUE: XR chest 2V Frontal and lateral views of the chest. FINDINGS: Lungs/Pleura: There is no evidence of pleural effusion, focal consolidation, or pneumothorax. Pulmonary vascularity: Unremarkable. Heart/mediastinum: Cardiomediastinal silhouette is unremarkable. Musculoskeletal: No acute osseous pathology. IMPRESSION: No acute cardiopulmonary disease/process.
[2023-05-13 12:47] VITALS: BP 130/77; PULSE 86; RESP 17; TEMP 98
== END 2023-05-13 12:30 | disposition home or self-care (01) ==
LOC: EC 09:22
DX: R07.89 Other chest pain (principal); Z86.59 Personal history of other mental and behavioral disorders; Z87.891 Personal history of nicotine dependence; Z20.822 Contact with and (suspected) exposure to COVID-19; Z88.2 Allergy status to sulfonamides; Z88.5 Allergy status to narcotic agent; Z88.1 Allergy status to other antibiotic agents
CPT/HCPCS: 36415; 71046; 80053; 81003; 84484; 85025; 85379; 85610; 85730; 87636; 93005; 99285

== ENCOUNTER → 2023-06-09 | Outpatient (CLI) | payer BC ==
--- NOTE | 2023-06-10 09:56 | CA ---
Transthoracic Echo Report Name: Sinan Saravia Age: 47 Gender: F : 1975 Exam Date: 06/09/2023 13:33 Exam Location: [facility] Echo Ht (in): 63 Wt (lb): 220 Ordering Physician: Reinaldo Sandoval DO Attending/Referring Phys: Emperatriz Cross [facility] Footwear Sales Associate Kristie Wilson RDCS Procedure CPT: Indications: I34.1 NONRHEUMATIC MITRAL(VALVE)PROLAPSE Cardiac Hx: Technical Quality: Fair Contrast 1: Total Dose (mL): Contrast 2: Total Dose (mL): MEASUREMENTS (Male / Female) Normal Values 2D ECHO LV Diastolic Diameter PLAX 4.4 cm 4.2 - 5.9 / 3.9 - 5.3 cm LV Systolic Diameter PLAX 2.6 cm IVS Diastolic Thickness 1.0 cm 0.6 - 1.0 / 0.6 - 0.9 cm LVPW Diastolic Thickness 1.0 cm 0.6 - 1.0 / 0.6 - 0.9 cm LV Relative Wall Thickness 0.5 RV Internal Dim ED PLAX 2.8 cm LA Volume 59.7 cm??? 18 - 58 / 22 - 52 cm??? LA Volume Index 27.7 cm???/m??? 16 - 28 cm???/m??? M-MODE Aortic Root Diameter MM 2.7 cm LA Systolic Diameter MM 3.4 cm LA Ao Ratio MM 1.2 AV Cusp Separation MM 1.5 cm DOPPLER AV Peak Velocity 134.3 cm/s AV Peak Gradient 7.2 mmHg AV Mean Velocity 85.1 cm/s AV Mean Gradient 3.3 mmHg AV Velocity Time Integral 21.7 cm LVOT Peak Velocity 109.2 cm/s LVOT Peak Gradient 4.8 mmHg LVOT Velocity Time Integral 23.9 cm MV Area PHT 3.7 cm??? Mitral E Point Velocity 78.5 cm/s Mitral A Point Velocity 64.6 cm/s Mitral E to A Ratio 1.2 MV Deceleration Time 204.5 ms MV E' Velocity 9.5 cm/s Mitral E to MV E' Ratio 8.2 TR Peak Velocity 223.1 cm/s TR Peak Gradient 19.9 mmHg Right Ventricular Systolic Press 24.4 mmHg FINDINGS Left Ventricle Mildly increased left ventricular wall thickness. Left ventricular cavity size normal.Low-normal left ventricular systolic function with no obvious regional wall motion abnormalities. The EF is at 50% Right Ventricle Normal right ventricular size and function. Right ventricular systolic pressure within normal limits. Right Atrium Normal right atrial size. Left Atrium Mildly increased left atrial volume. Mitral Valve Structurally normal mitral valve. No evidence for mitral valve prolapse. No mitral stenosis. Mild mitral regurgitation. Mild mitral annular calcification. Aortic Valve Trileaflet aortic valve. No aortic valve stenosis or regurgitation. Tricuspid Valve Structurally normal tricuspid valve. Trace to mild tricuspid regurgitation. Pulmonic Valve Structurally normal pulmonic valve. Pericardium No pericardial effusion. Aorta Normal size aortic root and proximal ascending aorta. CONCLUSIONS Technically difficult study for interpretation Low- normal LV systolic function. The EF is at 50% Previewed by: Dr. Bahman Bautista MD (Electronically Signed) Final Date: 10 June 2023 09:55
== END | disposition home or self-care (01) ==
LOC: RADECHMAIN 13:26
PROVIDERS: ATTEND Family Medicine
DX: I34.1 Nonrheumatic mitral (valve) prolapse (principal)
CPT/HCPCS: 93306

== ENCOUNTER → 2023-07-26 | Outpatient (CLI) | payer BC ==
[2023-07-26 14:46] VITALS: BP 128/81; PULSE 95; RESP 14; TEMP 98.4
--- NOTE | 2023-07-26 16:29 | P.SLEEP ---
History of Present Illness H&P Date: 07/26/23 This is a very pleasant 47-year-old female patient is coming in to be evaluated for sleep apnea. The patient has a chronic history of hidradenitis suppurativa and she has been treated locally by dermatology. She also has seen Dr. Kong. She has been diagnosed having some leaky cardiac valves and the patient was also given a Holter monitor as she is undergoing further investigation for cardiac health. The patient has been noticing chronic fatigue and sleepiness despite sleeping adequate number of hours. She goes to bed around 10 PM and she wakes up 5:30 AM in the morning. She is snoring a lot. She is single and there is no reports on witnessed apneas. No nocturia. No grinding. No waking up choking or gasping for air. No restlessness in lower extremities. No sleepwalking or sleep talking. No increased anxiety or panic attacks at nighttime. She wakes up tired and sleepy during the day. She remains fatigued and sleepy throughout the day. Current [place] score is at 6. She is able to drive and she does not fall asleep while driving. She has been sleeping on her side. She is a mouth breather. No history of substance abuse. No history of alcoholism. No excessive utilization of caffeinated beverages. Review of Systems Constitutional: Reports daytime sleepiness, Reports fatigue, Reports weight gain Eyes: denies as per HPI, denies blurred vision, denies bulging eye, denies decreased vision, denies diplopia, denies discharge, denies dry eye, denies irritation, denies itching, denies pain, denies photophobia, denies loss of peripheral vision, denies loss of vision, denies tunnel vision/blind spots Ears: deny: decreased hearing, ear discharge, earache, tinnitus Ears, nose, mouth and throat: Reports as per HPI Breasts: absent: as per HPI, change in shape, gynecomastia, masses, nipple discharge, pain, skin changes, swelling Cardiovascular: Reports as per HPI, Reports edema Respiratory: Reports as per HPI, Reports snoring Gastrointestinal: Reports as per HPI Genitourinary: Reports as per HPI Menstruation: Reports as per HPI Musculoskeletal: Reports as per HPI Musculoskeletal: absent: ankle pain, ankle stiffness, ankle swelling Integumentary: Reports as per HPI (History of skin disorder in the form of hidradenitis ) Neurological: Reports as per HPI Psychiatric: Reports as per HPI Endocrine: Reports as per HPI, Reports fatigue Hematologic/Lymphatic: Reports as per HPI Allergic/Immunologic: Reports as per HPI Past Medical History Past Medical History: Asthma, Mitral Valve Prolapse (MVP) Additional Past Medical History / Comment(s): HIDRADENITIS SUPPURATIVA (skin condition) 07/26/23 UPDATE: JUST CONFIRMED I DO NOT HAVE A MITRAL VALVE PROLAPSE, I HAVE A LEAKY HEART VALVE. ASTHMA HORRIBLY A CHILD, ONCE GOT TO MY 20S AND LIVED IN [place] NO MORE ISSUES WITH ASTHMA. History of Any Multi-Drug Resistant Organisms: None Reported Past Surgical History: Adenoidectomy, Hysterectomy, Tonsillectomy Additional Past Surgical History / Comment(s): SINUS SX SECONDARY INFECTION @ 12 Y/O. RIGHT AXILLA EXCISIONAL (BENIGN)-2005. LEFT BREAST EXCISIONAL (BENIGN)- 2005. 2 breast biopsy with chip in place. Robotic hysterectomy 01/12/2018, BILATERAL LASIC SURGERY Past Anesthesia/Blood Transfusion Reactions: Postoperative Nausea & Vomiting (PONV) Past Psychological History: Anxiety Additional Psychological History / Comment(s): DX: GENERALIZED ANXIETY IN MY 20- S, DX WITH SEPARATION ANXIETY A CHILD. Smoking Status: Former smoker Past Alcohol Use History: None Reported Additional Past Alcohol Use History / Comment(s): quit 20 yrs (IN [place]). sober 6 yrs Past Drug Use History: None Reported - Past Family History Mother Family Medical History: No Reported History, Sleep Apnea/CPAP/BIPAP Additional Family Medical History / Comment(s): GRANDPARENTS BOTH IN THEIR SLEEP, DAD AND HIS SISTER - ZIA. Medications and Allergies Home Medications Medication Instructions Recorded Confirmed Type Spironolactone [Aldactone] 100 mg PO HS 05/20/22 07/26/23 History Copper 9 gram PO HS 08/24/22 07/26/23 History L-Theanine (Unknown) 1 tab PO HS 08/24/22 07/26/23 History Magnesium Citrate And Taurate 1 dose PO HS 05/13/23 07/26/23 History Multivit with Calcium,Iron,Min 1 tab PO W/BRKFST 05/13/23 07/26/23 History [Women's Multivitamin] Zinc 30 mg PO HS 05/13/23 07/26/23 History Allergies Allergy/AdvReac Type Severity Reaction Status Date / Time hydrocodone [From Lortab] Allergy Severe Anaphylaxis Verified 05/13/23 11:33 Sulfa (Sulfonamide Allergy Severe Anaphylaxis Verified 05/13/23 09:35 Antibiotics) sulfamethoxazole Allergy Anaphylaxis Verified 05/13/23 11:33 [From Bactrim] trimethoprim [From Bactrim] Allergy Anaphylaxis Verified 05/13/23 11:33 Physical Exam Vitals: Vital Signs Temp Pulse Resp BP Pulse Ox 07/26/23 14:45 98.4 F 95 14 128/81 97 General appearance the patient is obese, comfortable no acute distress with a body mass index of 39.3. The patient appeared well nourished and normally developed. Vital signs as documented. Head exam is unremarkable. No scleral icterus or corneal arcus noted. Neck is without jugular venous distension, thyromegaly, or carotid bruits. Patient is a Mallampati class IV with significant crowding of the posterior pharynx. Carotid upstrokes are brisk bilaterally. Lungs are clear to auscultation and percussion. Cardiac exam reveals the PMI to be normally sized and situated. Rhythm is regular. First and second heart sounds normal. No murmurs, rubs or gallops. Abdominal exam reveals normal bowel sounds, no masses, no organomegaly and no aortic enlargement. Extremities are nonedematous and both femoral and pedal pulses are normal. Examination of the skin revealed no evidence of skin wounds or lesions in the groin and armpits related to hidradenitis.. Neurologically, the patient is awake and alert and the patient does not have any focal neurological deficit. Cranial nerves are essentially intact. Assessment and Plan Plan: Chronic hypersomnia/fatigue with an [place] score of 6. Adequate suspicion for obstructive sleep apnea based on history of snoring and obesity. The patient will need further investigation Loud snoring Obesity with a BMI of 39 Chronic fatigue History of hidradenitis suppurativa History of leaky heart valves, will be reviewing the echocardiogram to evaluate the exact pathology History of childhood asthma, currently inactive and stable Plan Increase clinical suspicion for obstructive sleep apnea. The patient is going to be given a screening polysomnography to evaluate for the presence and severity of sleep apnea we will make further recommendations based on those r esults. Encourage weight loss. Maintain good sleep hygiene measures. Maintain regular sleep schedule. Will continue to follow. Sleep Note - Sleep Data ESS Total: 6 - Sleep Note Sleep Note: Temperature: 98.4 F Pulse Rate: 95 Respiratory Rate: 14 Blood Pressure: 128/81 SpO2: 97 Height: Weight: BMI: Neck Circumference: 15
== END | disposition home or self-care (01) ==
LOC: 3 N SLEEP 14:21
PROVIDERS: ATTEND Internal Medicine Critical Care Medicine
DX: G47.33 Obstructive sleep apnea (adult) (pediatric) (principal); R53.83 Other fatigue; L73.2 Hidradenitis suppurativa; J45.909 Unspecified asthma, uncomplicated; Z88.5 Allergy status to narcotic agent; Z88.2 Allergy status to sulfonamides; Z91.048 Other nonmedicinal substance allergy status
CPT/HCPCS: 99211

== ENCOUNTER → 2023-08-22 | Outpatient (CLI) | payer BC ==
[2023-08-22 11:01] LABS: HGB 13.2 g/dL (12.0-15.0); MCH 28.3 pg (27.0-32.0); MCV 85.8 FL (80.0-97.0); Mean Platelet Volume 11.3 FL (9.5-12.2); NRBC Per 100 WBC 0 X 10*3/uL (0.00-0.01); Platelet Count 315 X 10*3/uL (140-440); RBC 4.66 X 10*6/uL (4.10-5.20); RDW 12.4 % (11.5-14.5); WBC 10.95 X 10*3/uL (4.50-10.00)
[2023-08-22 11:10] LABS: Blood Urea Nitrogen 17.8 mg/dL (9.0-27.0); Carbon Dioxide 23.7 mmol/L (21.6-31.8); Chloride 100 mmol/L (96-109); Potassium 4.1 mmol/L (3.5-5.5); Sodium 136 mmol/L (135-145)
== END | disposition home or self-care (01) ==
LOC: LABPAT 08:17
PROVIDERS: ATTEND Internal Medicine
DX: Z01.812 Encounter for preprocedural laboratory examination (principal); R06.02 Shortness of breath; R00.2 Palpitations
CPT/HCPCS: 36415; 80051; 82565; 84520; 85027

== ENCOUNTER 2023-08-29 10:40 | Day surgery (SDC) | payer BC ==
[2023-08-25 10:10] VITALS: BMI 38.0
[~2023-08-29 10:40] MED LIST changes: +ALPRAZolam 0.25 MG TAB PO PRN; -LACTATED RINGERS 1,000 ML IV SCH; -LIDOCAINE 1% (10MG/ML) FOR IV START INTRADERMA PRN; +NITROGLYCERIN SL TABS 0.4 MG TAB SUBLINGUAL PRN; +SODIUM CHLORIDE 0.9% 1,000 ML in EMPTY BAG 1 BAG IV SCH
[2023-08-29] MEDS: SODIUM CHLORIDE 0.9% 1,000 ML IV ONE (10:49)
[2023-08-29] MEDS: ASPIRIN 325 MG TAB PO ONE (11:14)
[2023-08-29] MEDS: ALPRAZolam 0.5 MG TAB PO PRN (11:14)
[2023-08-29 11:16] VITALS: RESP 16; TEMP 98.2
[2023-08-29] MEDS ORDERED: VERAPAMIL 2.5 MG/ML 2 ML AMP ONE (11:39)
[2023-08-29] MEDS ORDERED: HEPARIN SODIUM 1,000 UN/ML (10ML VL) ONE (11:51)
[2023-08-29] MEDS ORDERED: fentaNYL (PF) 50 MCG/ML 2 ML AMP ONE (12:04)
[2023-08-29] MEDS: MIDAZOLAM 2 MG/2 ML VIAL IVP ONE (12:08)
[2023-08-29] MEDS: fentaNYL (PF) 50 MCG/ML 2 ML AMP IVP ONE (12:10)
[2023-08-29] MEDS: LIDOCAINE 1% INJ 10MG/ML (20 ML MDV) SQ ONE (12:11)
[2023-08-29] MEDS: VERAPAMIL SYRINGE (5 MG/10 ML) INTRAARTER ONE (12:12)
[2023-08-29] MEDS: IOPAMIDOL-370 100ML BTL INJ ONE (12:21)
[2023-08-29] MEDS: ACETAMINOPHEN TAB 500 MG TAB PO ONE (12:44)
--- NOTE | 2023-08-29 12:49 | P.CARDCATH ---
Description of Procedure: PROCEDURES PERFORMED: Left heart catheterization, bilateral coronary angiography, ultrasound guided arterial access INDICATION: abnormal stress test CONSENT:I have discussed the risks, benefits and alternative therapies for the above-mentioned procedure and for both sedation/analgesia as well as necessary blood product administration, if indicated, as they pertain to this patient. The patient has indicated understanding and acceptance of the risks and procedures discussed. PROCEDURE: After the risks, benefits and alternatives of the above mentioned procedure explained in detail with the patient, informed consent was obtained. Patient was taken to the catheterization lab and prepped and draped in usual fashion. Ultrasound guidance was used to assess for arterial access. 1% lidocaine was used to anesthetize the right radial artery. A 6-Thai sheath was placed in the right radial artery using modified Seldinger technique and ultrasound guidance. Left coronary angiography was performed with a 5-Thai JL 3.5 catheter and right coronary angiography was performed with a 5-Thai FR5 catheter in various views. A 5-Thai FR5 catheter was inserted into the left ventricle and pressure measurements were obtained. The right radial sheath was removed and a TR band was placed with hemostasis achieved. The patient to lerated the procedure well. Patient was transported back to the post catheterization holding area in stable condition. Conscious Sedation: Patient was monitored under the direct supervision of myself for conscious sedation using Versed and fentanyl for a total duration of 9 minutes HEMODYNAMICS: Ao: 132/70 LV: 133/10, LVEPD 19 SELECTIVE CORONARY ARTERIOGRAPHY: LEFT MAIN: The left main is a large caliber vessel which bifurcates into the LAD and circumflex. There is no significant stenosis. LEFT ANTERIOR DESCENDING CORONARY ARTERY: LAD is a large caliber vessel which wraps around to the apex. There is no significant stenosis. LEFT CIRCUMFLEX CORONARY ARTERY: Left circumflex is a moderate caliber vessel without significant stenosis. RIGHT CORONARY ARTERY: The right coronary artery is a large caliber vessel which gives off a PDA and PLV branch and is the dominant vessel. There is no significant stenosis. FINAL IMPRESSION: 1. Normal coronary arteries as described above. 2. Mildly elevated left sided filling pressures PLAN: 1. Aggressive risk factor modification per most recent ACC/AHA guidelines. 2. Follow-up in the office in 1-2 weeks.
[2023-08-29] MEDS ORDERED: ONDANSETRON 4 MG/2 ML VIAL IVP PRN (15:13)
[2023-08-29] MEDS ORDERED: ONDANSETRON 4 MG/2 ML VIAL ONE (15:18)
[2023-08-29 16:51] VITALS: BP 102/57; PULSE 60
== END 2023-08-29 16:39 | disposition home or self-care (01) ==
LOC: CATHCVL 10:40
PROVIDERS: ATTEND Internal Medicine
DX: R06.02 Shortness of breath (principal); R00.2 Palpitations; E66.9 Obesity, unspecified; L73.2 Hidradenitis suppurativa; Z68.39 Body mass index [BMI] 39.0-39.9, adult; Z79.899 Other long term (current) drug therapy
CPT/HCPCS: 93458; 76937; C1769; C1894; J2250; J2001; J3010; J1644; Q9967

== ENCOUNTER → 2023-12-08 | Outpatient (CLI) | payer BC ==
--- NOTE | 2023-12-08 08:22 | MM ---
Reason for Exam: Additional evaluation requested from prior study. Last mammogram was performed 1 year(s) and 7 month(s) ago. Patient History: Menarche at age 11. Patient has no children. Hysterectomy at age 42. Perimenopausal. 05/27/2022, US biopsy breast add'l VAD LT on the Left side. 05/27/2022, Benign US biopsy breast VAD LT on the left side. 2013, Benign Excisional Biopsy on the right side. 11/08/2016, Benign Core Biopsy on the left side. 11/08/2016, Benign Core Biopsy on the right side. Maternal aunt had ovarian cancer, age 54. Risk Values: Bhavna 5 year model risk: 2.5%. NCI Lifetime model risk: 17.4%. Prior Study Comparison: 09/22/2016 Bilateral Diagnostic Mammogram, [facility]. 11/08/2016 Bilateral Diagnostic Mammogram, [facility]. 05/14/2022 Bilateral MG 3D screening mammo w/cad, [facility]. 05/27/2022 Left MG diagnostic mammo LT wo CAD., [facility]. Tissue Density: The breasts are extremely dense, which lowers the sensitivity of mammography. Findings: Analyzed By CAD. Microclip marker is noted within the left breast secondary to prior biopsy. No evidence for mass or distortion. No suspicious calcifications. Overall Assessment: Incomplete: need additional imaging evaluation, BI-RAD 0 Management: Diagnostic Breast Ultrasound of the left breast. . Results were given to the patient verbally at the time of exam. Patient should continue monthly self-breast exams. A clinical breast exam by your physician is recommended on an annual basis. This exam should not preclude additional follow-up of suspicious palpable abnormalities. Note on Bhavna scores and lifetime risk: 1. A Bhavna score greater than 3% is considered moderate risk. If this is the case, consider specialist referral to assess eligibility for a risk reducing agent. 2. If overall lifetime risk for the development of breast cancer is 20% or higher, the patient may qualify for future screening with alternating mammogram and breast MRI. Electronically signed and approved by: Samuel Nguyễn M.D. Radiologis
--- NOTE | 2023-12-08 08:43 | USB ---
Reason for Exam: Follow-up at short interval from prior study. Patient History: Menarche at age 11. Patient has no children. Hysterectomy at age 42. Perimenopausal. 05/27/2022, US biopsy breast add'l VAD LT on the Left side. 05/27/2022, Benign US biopsy breast VAD LT on the left side. 2013, Benign Excisional Biopsy on the right side. 11/08/2016, Benign Core Biopsy on the left side. 11/08/2016, Benign Core Biopsy on the right side. Maternal aunt had ovarian cancer, age 54. Risk Values: Bhavna 5 year model risk: 2.5%. NCI Lifetime model risk: 17.4%. Technique: Method: Targeted. Prior Study Comparison: 11/08/2016 Bilateral Diagnostic Mammogram, [facility]. 05/14/2022 Bilateral MG 3D screening mammo w/cad, [facility]. 05/27/2022 Left MG diagnostic mammo LT wo CAD., [facility]. Findings: The lateral section of the breast of the left breast, the axilla of the left breast and the retroareolar of the left breast were scanned. Stable previously sampled mass left 4:00 breast 3 cm from the nipple measures 1.3 x 0.6 cm versus 1.3 x 0.6 cm previously. 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 Overall Assessment: Benign, BI-RAD 2 Management: Screening Mammogram of both breasts in 1 year. A clinical breast exam by your physician is recommended on an annual basis and results should be correlated with mammographic findings. This exam should not preclude additional follow-up of suspicious palpable abnormalities. Results were given to the patient verbally at the time of exam. Electronically signed and approved by: Samuel Nguyễn M.D. Radiologis
== END | disposition home or self-care (01) ==
LOC: RADMAMWWP 11-25 07:54
PROVIDERS: ATTEND Family Medicine
DX: R89.7 Abnormal histological findings in specimens from other organs, systems and tissues (principal); R92.343 Mammographic extreme density, bilateral breasts; Z78.0 Asymptomatic menopausal state; Z80.41 Family history of malignant neoplasm of ovary
CPT/HCPCS: 77062; 77066

== ENCOUNTER → 2024-04-16 | Outpatient (CLI) | payer BC ==
[2024-04-16 15:56] LABS: Basophils # (A) 0.05 X 10*3/uL (0.00-0.10); Basophils % (A) 0.4 %; Eosinophils % (A) 1.7 %; HCT 41.9 % (37.2-46.3); HGB 13.7 g/dL (12.0-15.0); Lymphocytes % (A) 27.8 %; MCH 28.4 pg (27.0-32.0); MCHC 32.7 g/dL (32.0-37.0); MCV 86.9 FL (80.0-97.0); Mean Platelet Volume 10.4 FL (9.5-12.2); Monocytes # (A) 0.52 X 10*3/uL (0.20-1.00); Monocytes % (A) 4.4 %; NRBC Per 100 WBC 0 X 10*3/uL (0.00-0.01); Neutrophils # (A) 7.72 X 10*3/uL (1.80-7.70); Neutrophils % (A) 65.1 %; Platelet Count 335 X 10*3/uL (140-440); RBC 4.82 X 10*6/uL (4.10-5.20); RDW 12.2 % (11.5-14.5); WBC 11.86 X 10*3/uL (4.50-10.00)
[2024-04-16 16:00] LABS: ALT 19 U/L (8-44); AST 16 U/L (13-35); Albumin 4.6 g/dL (3.8-4.9); Albumin/Globulin Ratio 1.59 Ratio (1.60-3.17); Alkaline Phosphatase 74 U/L (41-126); BUN/Creat Ratio 12.25 Ratio (12.00-20.00); Bilirubin, Conjugated <0.20 mg/dL (0.20-0.40); Bilirubin,Unconjugated >0.20 mg/dL (0.20-1.00); Blood Urea Nitrogen 9.8 mg/dL (9.0-27.0); Calcium 9.8 mg/dL (8.7-10.3); Carbon Dioxide 23.8 mmol/L (21.6-31.8); Chloride 103 mmol/L (96-109); Chol/HDL Ratio 3.91 Ratio; Globulin 2.9 g/dL (1.6-3.3); Glucose 88 mg/dL (70-110); LDL Cholesterol,Calculated 131.8 mg/dL (0.0-131.0); Potassium 4.2 mmol/L (3.5-5.5); Sodium 138 mmol/L (135-145); Total Bilirubin 0.4 mg/dL (0.3-1.2); Total Protein 7.5 g/dL (6.2-8.2); VLDL Calculation 19.34 mg/dL (5.00-40.00)
[2024-04-16 16:15] LABS: Hepatitis B Surface Antigen Nonreactive (Nonreactive); Hepatitis C IgG Antibody Nonreactive (Nonreactive)
[2024-04-16 16:23] LABS: Hepatitis B Surface AB- Quant 3.5 mIU/mL
== END | disposition home or self-care (01) ==
LOC: LABWHC1 11:47
PROVIDERS: ATTEND Dermatology Procedural Dermatology
DX: L73.2 Hidradenitis suppurativa (principal); Z79.899 Other long term (current) drug therapy
CPT/HCPCS: 36415; 80048; 80061; 80076; 85025; 86480; 86704; 86706; 86803; 87340

== ENCOUNTER → 2024-08-03 | Outpatient (CLI) | payer OTHER ==
--- NOTE | 2024-08-03 13:04 | XR ---
EXAMINATION TYPE: XR foot complete RT DATE OF EXAM: 08/03/2024 12:50 PM COMPARISON: None CLINICAL INDICATION: Female, 48 years old with history of S99.921A UNSPECIFIED INJURY OF RIGHT FOOT, INITIAL, pain TECHNIQUE: XR foot complete RT examined in the AP, oblique, and lateral projections. FINDINGS: No evidence of any acute osseous pathology. Calcaneal Achilles enthesophyte. Multifocal degeneration changes throughout the joints of the foot with osteophyte formation and joint space narrowing. IMPRESSION: 1. No evidence of acute fracture. 2. 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 [facility], , 08/03/2024 1:01 PM
== END | disposition home or self-care (01) ==
LOC: RADXRMAIN 12:33
PROVIDERS: ATTEND Nurse Practitioner Family
DX: M19.071 Primary osteoarthritis, right ankle and foot (principal); S99.921A Unspecified injury of right foot, initial encounter

== ENCOUNTER → 2024-10-31 | Outpatient (CLI) | payer OTHER ==
[2024-10-31 21:43] LABS: DNA Double-Stranded Negative (Negative)
[2024-11-01 08:26] LABS: HLA B27 POSITIVE
[2024-11-01 10:42] LABS: Smooth Muscle Antibody 7 UNITS (<20)
== END | disposition home or self-care (01) ==
LOC: LABWHC1 09:09
PROVIDERS: ATTEND Ophthalmology
DX: H20.019 Primary iridocyclitis, unspecified eye (principal)
CPT/HCPCS: 36415; 82164; 83516; 85549; 85652; 86140; 86225; 86235; 86480; 86812